=== PATIENT | female | born 1980 | race Caucasian/White ===

== ENCOUNTER 2023-07-31 12:16 | Outpatient (AMB) | payer OTHER, SELFPAY ==
--- NOTE | 2023-07-31 12:22 | MHC.PC.OV ---
Vital Signs 07/31/23 12:30 07/31/23 12:36 Height 5 ft 4.96 in Weight 246 lb BMI 41.0 BP 126/94 H 124/90 H Blood Pressure Location Rt brachial Rt brachial Position Sitting Sitting Respiration 14 Pulse 91 Pulse Source Pulse Oximeter Temp 98 F Temp Source Oral Pulse Oximetry (%) 95 Oxygen Delivery Method Room Air Intake Visit Reasons: NPV Intake Note: New patient visit Allergies amoxicillin Allergy (Severe, Verified 07/31/23 12:25) throat swelling strawberry Allergy (Unknown, Verified 07/31/23 12:25) Hives Medication List - Last Reconciled 07/31/23 by Suzanna Urbano PA-C epinephrine IM escitalopram oxalate 20 mg PO DAILY fexofenadine (Allergy Relief (fexofenadine)) 180 mg PO DAILY gabapentin 600 mg PO BID methylphenidate HCl ER (Concerta) 36 mg PO QAM 60 days omeprazole 20 mg PO DAILY rizatriptan mg PO semaglutide (weight loss) (Wegovy) 0.25 mg (0.5 mL) subcut QWEEK Tobacco use date assessed: 07/31/23 Dental Screening Dental Screen Date: 07/31/23 Did you have a dental visit in the last 12 months?: No Did you have a dental problem in the last 6 months where you did not have access to dental care?: No Was dental information given to patient?: Patient has dentist HPI NPV HPI Details Pt is a 42 y/o female who [facility]. She is transferring from [facility]. She has a significant past medical history of anxiety, depression, high cholesterol, obesity, and gastric sleeve surgery. She would really like to get wegovy be covered by her insurance. She states that for years she has tried every diet from weight watchers, counting calories to low carb/no carb. She currently is on a very low carb diet x 6 months and states that she has a hard time losing weight. She has seen a court worker in the past. She states that she knows what she is supposed to do and thinks that she would benefit from wegovy. She has tried a gastric sleeve which resulted in 100 lb weight loss. She has gained back 30 lbs. She has a family hx of dm and is worried about developing this. She states that she is thirsty all the time. No vision changes or polyuria. She does have borderline elevated bp today. She does have a hx of dyslipidemia and has been following the low carb diet to try to lower her cholesterol and limiting her fatty food intake. Psych: She is on lexapro 20 mg and states that it is effective. She takes concerta 36 mg daily for adhd. Denies any SI/HI. Her PHQ-9 is positive but she states that she is tired all the time because she works 2 full-time jobs and has children. She denies any real depression. States that this feels very well managed with the Lexapro. Mammogram: Up-to-date [facility] Medical History (Updated 07/31/23 @ 14:37 by Suzanna Urbano PA-C) Major depression in partial remission Dyslipidemia Morbid obesity with BMI of 40.0-44.9, adult Depression Anxiety Headache IBS (irritable bowel syndrome) Surgical History (Updated 07/31/23 @ 13:06 by Suzanna Urbano PA-C) S/P gastric sleeve procedure Family History (Updated 07/31/23 @ 12:36 by Telma Pace CMA) Mother Hypercholesteremia Diabetes Maternal Grandmother Asthma Hypercholesteremia Social History (Updated 07/31/23 @ 12:28 by Telma Pace CMA) Housing: House Patient Tobacco Use Status: Former Tobacco user Years Smoked: 20 e-Cigarette/Vaping Use: Never Used Second Hand Smoke Exposure: No service: No Current occupational status: employed Current occupation: it help desk associate at [employer] Current occupational exposures/hazards: No Cognitive needs: No Hearing needs: No Vision needs: No Questionnaire PHQ-9 Over the last 2 weeks, how often have you been bothered by any of the following problems? 1. Little interest or pleasure in doing things: more than half the days 2. Feeling down, depressed, or hopeless: not at all 3. Trouble falling or staying asleep, or sleeping too much: nearly every day 4. Feeling tired or having little energy: more than half the days 5. Poor appetite or overeating: more than half the days 6. Feeling bad about yourself - or that you are a failure or have let yourself or your family down: not at all 7. Trouble concentrating on things, such as reading the newspaper or watching television: nearly every day 8. Moving or speaking so slowly that other people could have noticed. Or the opposite - being so fidgety or restless that you have been moving around a lot more than usual: more than half the days 9. Thoughts that you would be better off or of hurting yourself in some way: not at all Total score: 14 Depression Screening Interpretation: Positive Depression Screening Follow-up: Existing condition and In treatment Depression Screening Done: Yes 62509 - PHQ-9 Billing: Yes Source: Developed by Drs. Deni Lemus, Chantal Sarabia, Shaji Talbot and colleagues, with an educational lisa from [employer]. Thrive Questionnaire Date Thrive assessed: 07/31/23 I am a: Patient What is your living situation today?: I have a steady place to live Within the past 12 months, did the food you bought not last and you didn't have the money to get more?: Never true Within the past 12 months, did you worry whether your food would run out before you got money to buy more?: Never true Do you have trouble paying for medicines?: No Do you have trouble getting transportation to medical appointments?: No Do you have trouble paying your heating and electricity bill?: No Do you have trouble taking care of your child, family member or friend?: No Do you have trouble with day-to-day activities such as bathing, preparing meals, shopping, managing finances, etc.?: No Are you currently unemployed and looking for a job?: No Are you interested in more education?: No Please select the resources that you would like help with: None Currently or been in a relationship where the following occur: no concerns reported THRIVE Score: 0 AUDIT C Alcohol Use Questionnaire (AUDIT-C) 1. How often do you have a drink containing alcohol?: Monthly or less 2. How many drinks containing alcohol do you have on a typical day when you are drinking?: 3 or 4 3. How often do you have six or more drinks on one occasion?: Never Total Score: 2 CINDY-7 AMB Questionnaire CINDY-7 Date CINDY - 7 assessed: 07/31/23 Feeling nervous, anxious, or on edge: 1 = Several days Not being able to stop or control worryin = Not at all Worrying too much about different things: 1 = Several days Trouble relaxin = Several days Being so restless that it is hard to sit still: 1 = Several days Becoming easily annoyed or irritable: 0 = Not at all Feeling afraid as if something awful might happen: 0 = Not at all Total CINDY-7 score (0-4 normal; 5-9 mild; 10-14 moderate; 15-21 severe): 4 Source: Developed by Drs. Deni Lemus, Chantal Sarabia, Shaji Talbot and colleagues, with an educational lisa from [employer]. CINDY-7 Assessment Billing CINDY-7 Assessment Tool: CINDY-7 Assessment 86457 ACT Questionnaire In the past 4 weeks, how much of the time did your asthma keep you from getting as much done at work, school or at home?: None of the time During the past 4 weeks, how often have you had shortness of breath?: Not at all During the past 4 weeks, how often did your asthma symptoms wake you up at night or earlier than usual in the morning?: Not at all During the past 4 weeks, how often have you had to use your rescue inhaler or nebulizer medication?: Not at all How would you rate your asthma control during the past 4 weeks?: Completely controlled ACT Interpretation: Negative Score: 25 Physical exam (Primary Care) Vital Signs: Last Vital Signs Temp 98 F 07/31/23 12:30 Pulse 91 07/31/23 12:30 Resp 14 07/31/23 12:30 BP 124/90 H 07/31/23 12:36 Pulse Ox 95 07/31/23 12:30 Oxygen Delivery Method Room Air 07/31/23 12:30 BMI result Body Mass Index 41.0 BMI Assessment/Plan discussion: High (wegovy) BMI High, discussed plan: lifestyle, weight reduction, dietary, physical activity and alcohol moderation Tobacco/Smoking Status: Tobacco use Status Tobacco use date assessed 07/31/23 07/31/23 12:37 Patient Tobacco Use Status Former Tobacco user 07/31/23 12:37 e-Cigarette/Vaping Use Never Used 07/31/23 12:37 PHQ-9: PHQ-9 Score PHQ-9: Total score 14 07/31/23 12:59 Depression Screening Interpretation: Positive Depression Screening Follow-up: Existing condition and In treatment Thrive Assessment: Date of Thrive Assessment Date Thrive assessed 07/31/23 07/31/23 12:37 Currently or been in a relationship where the following occur: no concerns reported Const Orientation/consciousness: patient oriented x3 HENMT Ears: hearing grossly normal bilaterally Neck Thyroid: Thyroid normal Lymphatic: no lymphadenopathy noted Resp Auscultation: clear to auscultation bilaterally Cardio Rate: regular rate Rhythm: regular rhythm Heart sounds: S1 normal heart sound present and S2 normal heart sound present GI Inspection: Yes normal to inspection Palpation (GI): Soft to palpation and Other GI palpation findings present (nontender, no cva tenderness) Auscultation: normoactive bowel sounds Rectal Exam - Female: deferred Skin General skin exam: no rashes or lesions noted Neuro General: patient oriented x3, gait normal and no focal motor deficits Assessment and Plan Assessment & Plan (1) ADD (attention deficit disorder): Code(s): F98.8 - Other specified behavioral and emotional disorders with onset usually occurring in childhood and adolescence Qualifiers: Attention deficit-hyperactivity disorder type: combined inattentive-hyperactive Hyperactivity presence: present Qualified Code(s): F90.2 - Attention-deficit hyperactivity disorder, combined type Plan: Currently well-controlled with Concerta. (2) Morbid obesity with BMI of 40.0-44.9, adult: Code(s): E66.01 - Morbid (severe) obesity due to excess calories; Z68.41 - Body mass index [BMI] 40.0-44.9, adult Plan: We will try wegovy. We discussed risks and benefits and adverse effects including nausea, vomiting, increased risk of pancreatitis and thyroid malignancies. I have advised her to follow up in 1 month to be reassessed. I have encouraged her to pair this with a low carb diet, increase her exercise and avoid eating after 19:00. Patient understands and agrees with this plan. (3) Dyslipidemia: Code(s): E78.5 - Hyperlipidemia, unspecified Plan: We will recheck lipids in 6 months. (4) Polydipsia: Code(s): R63.1 - Polydipsia Plan: Labs ordered today. We will rule out diabetes. (5) Major depression in partial remission: Code(s): F32.4 - Major depressive disorder, single episode, in partial remission Qualifiers: Major depression recurrence: recurrent Qualified Code(s): F33.41 - Major depressive disorder, recurrent, in partial remission Plan: Well-controlled with Lexapro. (6) Generalized anxiety disorder: Code(s): F41.1 - Generalized anxiety disorder Plan: As above. (7) S/P gastric sleeve procedure: Code(s): Z90.3 - Acquired absence of stomach [part of] Plan: Takes iron supplements. Not on B12 supplements. We will check labs. (8) Elevated blood pressure reading without diagnosis of hypertension: Code(s): R03.0 - Elevated blood-pressure reading, without diagnosis of hypertension Plan: She works at a doctor's office. Advised to monitor her blood pressure over the next couple weeks until let me know. One-month follow up. Sooner if needed. Patient understands and agrees with the plan. Orders: Orders Comprehensive Met. Panel Today E66.01 - Morbid (severe) obesity due to excess calories, E78.5 - Hyperlipidemia, unspecified, F32.4 - Major depressive disorder, single episode, in partial remission, F41.1 - Generalized anxiety disorder, F90.2 - Attention-deficit hyperactivity disorder, combined type, R63.1 - Polydipsia, Z68.41 - Body mass index [BMI] 40.0-44.9, adult Vitamin B12 and Folate Today E66.01 - Morbid (severe) obesity due to excess calories, E78.5 - Hyperlipidemia, unspecified, F32.4 - Major depressive disorder, single episode, in partial remission, F41.1 - Generalized anxiety disorder, F90.2 - Attention-deficit hyperactivity disorder, combined type, R63.1 - Polydipsia, Z68.41 - Body mass index [BMI] 40.0-44.9, adult Hemoglobin A1c Today E66.01 - Morbid (severe) obesity due to excess calories, E78.5 - Hyperlipidemia, unspecified, F32.4 - Major depressive disorder, single episode, in partial remission, F41.1 - Generalized anxiety disorder, F90.2 - Attention-deficit hyperactivity disorder, combined type, R63.1 - Polydipsia, Z68.41 - Body mass index [BMI] 40.0-44.9, adult Thyroid Peroxidase Antibodies Today E66.01 - Morbid (severe) obesity due to excess calories, E78.5 - Hyperlipidemia, unspecified, F32.4 - Major depressive disorder, single episode, in partial remission, F41.1 - Generalized anxiety disorder, F90.2 - Attention-deficit hyperactivity disorder, combined type, R63.1 - Polydipsia, Z68.41 - Body mass index [BMI] 40.0-44.9, adult Thyroglobulin Antibodies Today E66.01 - Morbid (severe) obesity due to excess calories, E78.5 - Hyperlipidemia, unspecified, F32.4 - Major depressive disorder, single episode, in partial remission, F41.1 - Generalized anxiety disorder, F90.2 - Attention-deficit hyperactivity disorder, combined type, R63.1 - Polydipsia, Z68.41 - Body mass index [BMI] 40.0-44.9, adult TSH reflex Free T4 Today E66.01 - Morbid (severe) obesity due to excess calories, E78.5 - Hyperlipidemia, unspecified, F32.4 - Major depressive disorder, single episode, in partial remission, F41.1 - Generalized anxiety disorder, F90.2 - Attention-deficit hyperactivity disorder, combined type, R63.1 - Polydipsia, Z68.41 - Body mass index [BMI] 40.0-44.9, adult Medications: Refilled semaglutide (weight loss) (BartMindframedaniela) administer weeks 1 through 4 of therapy 0.25 mg (0.5 mL) subcut QWEEK 2 mL 1RF Coding Level of Care Code Est Pt Level 4 (89944) Complex EM visit Add On G2211 Diagnoses Attention deficit hyperactivity disorder (ADHD), combined type F90.2 Attention deficit-hyperactivity disorder type: combined inattentive-hyperactive Hyperactivity presence: present Morbid obesity with BMI of 40.0-44.9, adult E66.01; Z68.41 Dyslipidemia E78.5 Polydipsia R63.1 Recurrent major depressive disorder, in partial remission F33.41 Major depression recurrence: recurrent Generalized anxiety disorder F41.1 S/P gastric sleeve procedure Z90.3 Elevated blood pressure reading without diagnosis of hypertension R03.0 Additional Codes CINDY-7 Assessment Billing - CINDY-7 Assessment Tool: CINDY-7 Assessment [id number] ([id number])
[2023-07-31 12:30] VITALS: BP 126/94; PULSE 91; RESP 14; TEMP 36.6; O2SAT 95; BMI 41.0
[2023-07-31 12:36] VITALS: BP 124/90
== END 2023-07-31 13:17 | disposition home or self-care (01) ==
PROVIDERS: PCP Internal Medicine; Visit Provider Physician Assistant
DX: E78.5 Hyperlipidemia, unspecified (principal); E66.01 Morbid (severe) obesity due to excess calories; Z68.41 Body mass index [BMI] 40.0-44.9, adult; F33.41 Major depressive disorder, recurrent, in partial remission; F90.2 Attention-deficit hyperactivity disorder, combined type; R63.1 Polydipsia; F41.1 Generalized anxiety disorder; Z90.3 Acquired absence of stomach [part of]; R03.0 Elevated blood-pressure reading, without diagnosis of hypertension
CPT/HCPCS: 99214; G2211

== ENCOUNTER 2023-07-31 13:18 | Outpatient (REF) | payer OTHER, SELFPAY ==
[2023-07-31 17:59] LABS: Alanine Aminotransferase 17 U/L (0-31); Albumin Level 4.5 g/dL (3.5-5.0); Alkaline Phosphatase 49 U/L (39-117); Anion Gap 15 (12-20); Aspartate Amino Transferase 14 U/L (5-31); Bilirubin Total 0.3 mg/dL (0.0-1.0); Blood Urea Nitrogen 12 mg/dL (9-16); Calcium 9.1 mg/dL (8.4-10.2); Carbon Dioxide 22 mmol/L (22-29); Chloride 106 mmol/L (96-108); Estimated Glomerular Filt Rate > 60; Glucose Random 86 mg/dL (60-115); Potassium 3.9 mmol/L (3.3-5.1); Sodium 139 mmol/L (135-145); Total Protein 7.2 g/dL (6.5-8.0)
[2023-07-31 18:16] LABS: TSH reflex Free T4 0.73 uIU/mL (0.32-4.0)
[2023-07-31 18:22] LABS: Folate 5.9 ng/mL (> or = 4.0); Vitamin B12 498 pg/mL (200-900)
[2023-08-01 07:07] LABS: Estimated Average Glucose 103 mg/dL; Hemoglobin A1c % 5.2 % (<6.0)
[2023-08-04 17:43] LABS: Thyroglobulin Antibodies <1 IU/mL (< or = 1); Thyroid Peroxidase Antibodies 1 IU/mL (<9)
== END 2023-07-31 13:19 | disposition home or self-care (01) ==
LOC: HO.WFDLDS 13:18
PROVIDERS: Visit Provider Physician Assistant
DX: F41.1 Generalized anxiety disorder (principal); F32.4 Major depressive disorder, single episode, in partial remission; R63.1 Polydipsia; E78.5 Hyperlipidemia, unspecified; E66.01 Morbid (severe) obesity due to excess calories; Z68.41 Body mass index [BMI] 40.0-44.9, adult; F90.2 Attention-deficit hyperactivity disorder, combined type
CPT/HCPCS: 36415; 80053; 82607; 82746; 83036; 84443; 86376; 86800

== ENCOUNTER 2023-11-26 08:08 | Outpatient (AMB) | payer OTHER, SELFPAY ==
--- NOTE | 2023-11-26 08:17 | MHC.PC.OV ---
Vital Signs 11/26/23 08:19 Height 5 ft 4.96 in Weight 227 lb 6 oz BMI 37.9 BP 116/84 Blood Pressure Location Rt brachial Position Sitting Respiration 16 Pulse 79 Pulse Source Pulse Oximeter Pulse Oximetry (%) 95 Oxygen Delivery Method Room Air Intake Visit Reasons: Meds Intake Note: Medication follow up Allergies amoxicillin Allergy (Severe, Verified 11/26/23 08:17) throat swelling strawberry Allergy (Unknown, Verified 11/26/23 08:17) Hives Medication List - Last Reconciled 11/26/23 by Suzanna Urbano PA-C blood-glucose sensor (FreeStyle Mason 3 Sensor device) Apply every 14 days As directed to monitor blood glucose epinephrine IM escitalopram oxalate 20 mg PO DAILY ferrous sulfate 325 mg PO DAILY fexofenadine (Allergy Relief (fexofenadine)) 180 mg PO DAILY gabapentin 600 mg PO BID methylphenidate HCl ER (Concerta) 36 mg PO QAM 60 days nystatin 1 appl topical TID 10 days omeprazole 20 mg PO DAILY polyethylene glycol 3350 (Miralax) 17 grams PO BID rizatriptan mg PO semaglutide (weight loss) (Wegovy) 2.4 mg (0.75 mL) subcut QWEEK Tobacco use date assessed: 07/31/23 Dental Screening Dental Screen Date: 07/31/23 HPI Meds HPI Details Patient is a 43-year-old female with a significant past medical history of obesity, s/p gastric bypass, prediabetes, dyslipidemia, chronic back pain, ADD, anxiety and depression presenting today for a follow up. Psych: States that she is well-controlled on Concerta 36 mg. Has been on this for quite some time. Her anxiety and depression is well-controlled with Lexapro. General: Has lost 20 lb since starting Wegovy. States that she is doing well with this and has no adverse effects. She also has the freestyle Mason 3 which she has been paid for [id number] to help her manage her diet. Musculoskeleltal: She reports low back pain that has been present for many years. She has had injections in the past with good relief of symptoms but over the last 10 months she has had an exacerbation of this back pain. It is across her low back and feels more central. It aches. She did have an x-ray at [facility] which showed degeneration of the discs and joint space. At times the pain radiates down her legs. No numbness or weakness of her extremities but the pain is sharp and shooting. She says that the pain of her back is every day. She has been doing physical therapy that she has learned over the years from going to PT. She states that her core is strong and she is careful with how she lifts. She does have good days and bad days of this back pain. Gabapentin makes her feel altered. She says that she takes it but it does make her feel a little loopy. She does not like having to take this especially while working. She does use OTC analgesics primarily and is asking today for a refill of oxycodone to use as needed for back pain exacerbation. This past month been worse than it has been. She states that she would like something to get her through until she can see Dr. Clayton. We have trialed prednisone tapers a couple times with some improvement of the pain but did not fully relieve it. No bowel or bladder dysfunction. No specific trauma. Endo: A1c today is 5.2. CV: Last blood pressure in the office was a little elevated and today is 116/84. Cholesterol is diet controlled. She is excited to see her new numbers with her lifestyle modifications. Mammo: Up-to-date at [facility] Medical History (Updated 11/26/23 @ 08:33 by Suzanna Urbano PA-C) Major depression in partial remission Dyslipidemia Morbid obesity with BMI of 40.0-44.9, adult Depression Anxiety Headache IBS (irritable bowel syndrome) Surgical History (Updated 07/31/23 @ 13:06 by Suzanna Urbano PA-C) S/P gastric sleeve procedure Family History (Updated 07/31/23 @ 12:36 by Telma Pace CMA) Mother Hypercholesteremia Diabetes Maternal Grandmother Asthma Hypercholesteremia Social History (Updated 07/31/23 @ 12:28 by Telma Pace CMA) Housing: House Patient Tobacco Use Status: Former Tobacco user Years Smoked: 20 e-Cigarette/Vaping Use: Never Used Second Hand Smoke Exposure: No service: No Current occupational status: employed Current occupation: desktop support consultant at [employer] Current occupational exposures/hazards: No Cognitive needs: No Hearing needs: No Vision needs: No Questionnaire PHQ-9 Over the last 2 weeks, how often have you been bothered by any of the following problems? 1. Little interest or pleasure in doing things: not at all 2. Feeling down, depressed, or hopeless: not at all 3. Trouble falling or staying asleep, or sleeping too much: several days 4. Feeling tired or having little energy: not at all 5. Poor appetite or overeating: not at all 6. Feeling bad about yourself - or that you are a failure or have let yourself or your family down: not at all 7. Trouble concentrating on things, such as reading the newspaper or watching television: not at all 8. Moving or speaking so slowly that other people could have noticed. Or the opposite - being so fidgety or restless that you have been moving around a lot more than usual: not at all 9. Thoughts that you would be better off or of hurting yourself in some way: not at all Total score: 1 Depression Screening Interpretation: Negative Depression Screening Done: Yes 63367 - PHQ-9 Billing: Yes Source: Developed by Drs. Deni Lemus, Chantal Sarabia, Shaji Talbot and colleagues, with an educational lisa from [employer]. Thrive Questionnaire Date Thrive assessed: 11/24/23 I am a: Patient What is your living situation today?: I have a steady place to live Within the past 12 months, did the food you bought not last and you didn't have the money to get more?: Never true Within the past 12 months, did you worry whether your food would run out before you got money to buy more?: Never true Do you have trouble paying for medicines?: No Do you have trouble getting transportation to medical appointments?: No Do you have trouble paying your heating and electricity bill?: No Do you have trouble taking care of your child, family member or friend?: No Do you have trouble with day-to-day activities such as bathing, preparing meals, shopping, managing finances, etc.?: No Are you currently unemployed and looking for a job?: No Are you interested in more education?: No Please select the resources that you would like help with: None Currently or been in a relationship where the following occur: No concerns reported THRIVE Score: 0 AUDIT C Alcohol Use Questionnaire (AUDIT-C) 1. How often do you have a drink containing alcohol?: 2-4 times a month 2. How many drinks containing alcohol do you have on a typical day when you are drinking?: 3 or 4 3. How often do you have six or more drinks on one occasion?: Never Total Score: 3 Score Reviewed/Action Taken: Yes CINDY-7 AMB Questionnaire CINDY-7 Date CINDY - 7 assessed: 07/31/23 Feeling nervous, anxious, or on edge: 0 = Not at all Not being able to stop or control worryin = Not at all Worrying too much about different things: 0 = Not at all Trouble relaxin = Several days Being so restless that it is hard to sit still: 0 = Not at all Becoming easily annoyed or irritable: 1 = Several days Feeling afraid as if something awful might happen: 0 = Not at all Total CINDY-7 score (0-4 normal; 5-9 mild; 10-14 moderate; 15-21 severe): 2 Source: Developed by Drs. Deni Lemus, Chantal Sarabia, Shaji Talbot and colleagues, with an educational lisa from [employer]. CINDY-7 Assessment Billing CINDY-7 Assessment Tool: CINDY-7 Assessment 07823 Physical exam (Primary Care) Tobacco/Smoking Status: Tobacco use Status Tobacco use date assessed 07/31/23 07/31/23 12:37 Patient Tobacco Use Status Former Tobacco user 07/31/23 12:37 e-Cigarette/Vaping Use Never Used 07/31/23 12:37 Depression Screening Interpretation: Negative Thrive Assessment: Date of Thrive Assessment Date Thrive assessed 11/24/23 11/24/23 08:53 Currently or been in a relationship where the following occur: No concerns reported Const Orientation/consciousness: patient oriented x3 HENMT Ears: hearing grossly normal bilaterally Neck Thyroid: Thyroid normal Lymphatic: no lymphadenopathy noted Resp Auscultation: clear to auscultation bilaterally Cardio Rate: regular rate Rhythm: regular rhythm Heart sounds: S1 normal heart sound present and S2 normal heart sound present GI Inspection: Yes normal to inspection Palpation (GI): Soft to palpation and Other GI palpation findings present (nontender, no cva tenderness) Auscultation: normoactive bowel sounds Rectal Exam - Female: deferred Skin General skin exam: no rashes or lesions noted Neuro General: patient oriented x3, gait normal and no focal motor deficits Results AMB Hemoglobin A1c AMB Hemoglobin A1c 5.2 % Last Edit by Telma Pace CMA on 11/26/23 08:35 Coding Level of Care Code Est Pt Level 4 (77976) Complex EM visit Add On G2211 Diagnoses Attention deficit hyperactivity disorder (ADHD), combined type F90.2 Hyperactivity presence: present Attention deficit-hyperactivity disorder type: combined inattentive-hyperactive Recurrent major depressive disorder, in partial remission F33.41 Major depression recurrence: recurrent Dyslipidemia E78.5 Morbid obesity with BMI of 40.0-44.9, adult E66.01; Z68.41 Acute on chronic back pain M54.9; G89.29 Prediabetes R73.03 Bilateral low back pain with sciatica M54.40 Additional Codes CINDY-7 Assessment Billing - CINDY-7 Assessment Tool: CINDY-7 Assessment 91131 ([id number]) Assessment & Plan Assessment & Plan (1) ADD (attention deficit disorder): Code(s): F98.8 - Other specified behavioral and emotional disorders with onset usually occurring in childhood and adolescence Category: Medical Qualifiers: Hyperactivity presence: present Attention deficit-hyperactivity disorder type: combined inattentive-hyperactive Qualified Code(s): F90.2 - Attention-deficit hyperactivity disorder, combined type Plan: Well-controlled. Continue Concerta. On a CSC for this. (2) Major depression in partial remission: Code(s): F32.4 - Major depressive disorder, single episode, in partial remission Category: Medical Qualifiers: Major depression recurrence: recurrent Qualified Code(s): F33.41 - Major depressive disorder, recurrent, in partial remission Plan: Well-controlled. Continue current regimen (3) Dyslipidemia: Code(s): E78.5 - Hyperlipidemia, unspecified Category: Medical Plan: We will monitor. Recently lost 20 lb with diet changes. (4) Morbid obesity with BMI of 40.0-44.9, adult: Code(s): E66.01 - Morbid (severe) obesity due to excess calories; Z68.41 - Body mass index [BMI] 40.0-44.9, adult Category: Medical Plan: Continue Wegovy. (5) Acute on chronic back pain: Code(s): M54.9 - Dorsalgia, unspecified; G89.29 - Other chronic pain Category: Medical Plan: MRI ordered given the trials of prednisone, PT, rest and conservative management. I have referred her to physiatry. We will follow up pending test results. We will prescribe oxycodone for severe exacerbated back pain. We did discuss risks and benefits and adverse effects of this medication including addiction, dependence, sedation. She will not drink alcohol or operate a vehicle while taking this medication. (6) Prediabetes: Code(s): R73.03 - Prediabetes Category: Medical Plan: A1c today WNL. Continue current regimen. (7) Bilateral low back pain with sciatica: Code(s): M54.40 - Lumbago with sciatica, unspecified side Category: Medical Plan: As listed above Plan Follow up in 3 months. Sooner if needed. Labs ordered prior to appointment. Patient understands and agrees with the plan. Orders: Orders AMB Hemoglobin A1c Today R73.03 - Prediabetes MR lumbar spine wo con Today G89.29 - Other chronic pain, M54.40 - Lumbago with sciatica, unspecified side, M54.9 - Dorsalgia, unspecified Comprehensive [place]. Panel Fast Today E66.01 - Morbid (severe) obesity due to excess calories, E78.5 - Hyperlipidemia, unspecified, F33.41 - Major depressive disorder, recurrent, in partial remission, G89.29 - Other chronic pain, M54.40 - Lumbago with sciatica, unspecified side, M54.9 - Dorsalgia, unspecified, R73.03 - Prediabetes, Z68.41 - Body mass index [BMI] 40.0-44.9, adult Complete Blood Count Auto Diff Today E66.01 - Morbid (severe) obesity due to excess calories, E78.5 - Hyperlipidemia, unspecified, F33.41 - Major depressive disorder, recurrent, in partial remission, G89.29 - Other chronic pain, M54.40 - Lumbago with sciatica, unspecified side, M54.9 - Dorsalgia, unspecified, R73.03 - Prediabetes, Z68.41 - Body mass index [BMI] 40.0-44.9, adult Lipid Panel Today E66.01 - Morbid (severe) obesity due to excess calories, E78.5 - Hyperlipidemia, unspecified, F33.41 - Major depressive disorder, recurrent, in partial remission, G89.29 - Other chronic pain, M54.40 - Lumbago with sciatica, unspecified side, M54.9 - Dorsalgia, unspecified, R73.03 - Prediabetes, Z68.41 - Body mass index [BMI] 40.0-44.9, adult Referrals Physiatry Referral G89.29 - Other chronic pain, M54.40 - Lumbago with sciatica, unspecified side, M54.9 - Dorsalgia, unspecified Medications: New oxycodone Partial Fill upon patient request. 5 mg PO Q12H 28 days PRN 56 tabs 0RF pain Refilled methylphenidate HCl ER (Concerta) Partial Fill upon patient request. 36 mg PO QAM 60 days 60 tabs 0RF F98.8 - Other specified behavioral and emotional disorders with onset usually occurring in childhood and adolescence semaglutide (weight loss) (Wegovy) 2.4 mg (0.75 mL) subcut QWEEK 3 mL 11RF
[2023-11-26 08:19] VITALS: BP 116/84; PULSE 79; RESP 16; O2SAT 95; BMI 37.9
== END 2023-11-26 09:00 | disposition home or self-care (01) ==
PROVIDERS: PCP Internal Medicine; Visit Provider Physician Assistant
DX: E78.5 Hyperlipidemia, unspecified (principal); F33.41 Major depressive disorder, recurrent, in partial remission; E66.813 Obesity, class 3; Z68.41 Body mass index [BMI] 40.0-44.9, adult; F90.2 Attention-deficit hyperactivity disorder, combined type; M54.9 Dorsalgia, unspecified; G89.29 Other chronic pain; R73.03 Prediabetes; M54.40 Lumbago with sciatica, unspecified side

== ENCOUNTER → 2023-11-26 08:08 | Outpatient (BNVA) | payer OTHER, SELFPAY | PROVIDERS: PCP Internal Medicine; Visit Provider Physician Assistant | DX: F90.2 Attention-deficit hyperactivity disorder, combined type (principal); F33.41 Major depressive disorder, recurrent, in partial remission; E78.5 Hyperlipidemia, unspecified; E66.01 Morbid (severe) obesity due to excess calories; Z68.41 Body mass index [BMI] 40.0-44.9, adult; G89.29 Other chronic pain; M54.9 Dorsalgia, unspecified; R73.03 Prediabetes; M54.50 Low back pain, unspecified | CPT/HCPCS: 83036; 96127 ==

== ENCOUNTER 2023-11-26 09:05 | Outpatient (REF) | payer OTHER, SELFPAY ==
[2023-11-26 11:01] LABS: MANUAL DIFF FLAG NO
[2023-11-26 11:16] LABS: Basophils Absolute Auto 0.1 X10*3/uL (0.0-0.2); Basophils Percent Auto 0.7 % (0-2); Eosinophils Absolute Auto 0.1 X10*3/uL (0.0-0.4); Eosinophils Percent Auto 1.3 % (0-4); Hemoglobin 14.4 g/dl (12.0-16.0); Imm Gran Abs Auto 0.01 X10*3/uL (0.00-0.03); Imm Gran Pct Auto 0.1 % (0.0-0.4); Lymphocytes Percent Auto 29.1 % (20-40); Mean Corpuscular HGB Conc 33.5 g/dl (31.0-35.0); Mean Corpuscular Hemoglobin 29.2 pg (27.0-33.0); Mean Corpuscular Volume 87.2 fL (80.0-98.0); Mean Platelet Volume 10.6 fL (9.4-12.3); Monocytes Absolute Auto 0.5 X10*3/uL (0.1-1.2); Monocytes Percent Auto 7.7 % (2-11); Neutrophils Absolute Auto 4.1 x10*3/uL (2.0-8.3); Neutrophils Percent Auto 61.1 % (45-73); Platelet Count 479 X10*3/uL (160-400); Red Blood Count 4.93 X10*6/uL (4.20-5.50); White Blood Count 6.8 X10*3/uL (4.8-10.8)
[2023-11-26 11:22] LABS: Alanine Aminotransferase 14 U/L (0-31); Albumin Level 4.5 g/dL (3.5-5.0); Alkaline Phosphatase 43 U/L (39-117); Anion Gap 11 (12-20); Aspartate Amino Transferase 14 U/L (5-31); Bilirubin Total 0.7 mg/dL (0.0-1.0); Blood Urea Nitrogen 10 mg/dL (9-16); Carbon Dioxide 25 mmol/L (22-29); Chloride 109 mmol/L (96-108); Cholesterol 192 mg/dL (<200); Estimated Glomerular Filt Rate > 60; Glucose Fasting 93 mg/dL (60-99); HDL Cholesterol 38 mg/dL (>40); LDL Cholesterol Calculated 135 mg/dL (<100); Sodium 141 mmol/L (135-145); Total Protein 7.1 g/dL (6.5-8.0); Triglycerides 96 mg/dL (<150)
== END 2023-11-26 09:06 | disposition home or self-care (01) ==
LOC: HO.WFDLDS 09:05
PROVIDERS: Visit Provider Physician Assistant
DX: M54.40 Lumbago with sciatica, unspecified side (principal); R73.03 Prediabetes; M54.9 Dorsalgia, unspecified; G89.29 Other chronic pain; F33.41 Major depressive disorder, recurrent, in partial remission; E66.01 Morbid (severe) obesity due to excess calories; Z68.41 Body mass index [BMI] 40.0-44.9, adult; E78.5 Hyperlipidemia, unspecified
CPT/HCPCS: 36415; 80053; 80061; 85025

== ENCOUNTER 2023-12-10 16:45 | Outpatient (REF) | payer OTHER, SELFPAY ==
--- NOTE | ~2023-12-10 | XR_ITS ---
EXAMINATION: XR CHEST CLINICAL INFORMATION: Cough COMPARISON: None available. TECHNIQUE: 2 views of the chest were obtained. FINDINGS: No significant abnormality is noted involving the heart, lungs, mediastinum, bony thorax or soft tissues. XR/XR chest 2V IMPRESSION: Unremarkable examination. Electronically signed by: Erik Bliss MD 12/11/2023 10:48 AM EDT
== END 2023-12-10 16:46 | disposition home or self-care (01) ==
LOC: HO.XRAY 16:45
PROVIDERS: PCP Physician Assistant; Visit Provider Physician Assistant
DX: R05.9 Cough, unspecified (principal)
CPT/HCPCS: 71046

== ENCOUNTER 2023-12-31 10:49 | Outpatient (AMB) | payer OTHER, SELFPAY ==
--- NOTE | 2023-12-31 10:46 | A.OFFPC_ITS ---
Intake Visit Reasons: paperwork Allergies amoxicillin Allergy (Severe, Verified 11/26/23 08:17) throat swelling strawberry Allergy (Unknown, Verified 11/26/23 08:17) Hives Tobacco use date assessed: 07/31/23 Dental Screening Dental Screen Date: 07/31/23 HPI paperwork HPI Details Patient is a 43-year-old female who presents today requesting a letter. She experienced Left leg pain started in May after she tripped on bottom and strained her leg. She then tried to give it a few days of OTC medicines then the lower leg pain continued. She got an xray (06/09/23) and followed by u/s on (06/05/23) to rule out clot. She called today because she needs a note stating that this was related to an at home injury. She states eventually got a lot better after 1 month. Around that time she was unable to do much exercise or excessive walking. 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 She was using rest, tylenol, and motrin. Psych: States that her anxiety is currently very well-controlled with the Lexapro 20 mg. [employer] is working for her ADHD. General: She is losing weight with Wegovy. Tolerating well. No nausea or vomiting. [facility] Medical History (Updated 12/10/23 @ 13:04 by Suzanna Urbano PA-C) Major depression in partial remission Dyslipidemia Morbid obesity with BMI of 40.0-44.9, adult Depression Anxiety Headache IBS (irritable bowel syndrome) Surgical History (Updated 07/31/23 @ 13:06 by Suzanna Urbano PA-C) S/P gastric sleeve procedure Family History (Updated 07/31/23 @ 12:36 by Telma Pace CMA) Mother Hypercholesteremia Diabetes Maternal Grandmother Asthma Hypercholesteremia Social History (Updated 07/31/23 @ 12:28 by Telma Pace CMA) Housing: House Patient Tobacco Use Status: Former Tobacco user Years Smoked: 20 e-Cigarette/Vaping Use: Never Used Second Hand Smoke Exposure: No service: No Current occupational status: employed Current occupation: help desk assistant at [employer] Current occupational exposures/hazards: No Cognitive needs: No Hearing needs: No Vision needs: No Questionnaire Thrive Questionnaire Date Thrive assessed: 11/24/23 CINDY-7 AMB Questionnaire CINDY-7 Date CINDY - 7 assessed: 07/31/23 Source: Developed by Drs. Deni Lemus, Chantal Sarabia, Shaji Talbot and colleagues, with an educational lisa from [employer]. Physical exam (Primary Care) Tobacco/Smoking Status: Tobacco use Status Tobacco use date assessed 07/31/23 12/31/23 10:48 Patient Tobacco Use Status Former Tobacco user 12/31/23 10:48 e-Cigarette/Vaping Use Never Used 12/31/23 10:48 Thrive Assessment: Date of Thrive Assessment Date Thrive assessed 11/24/23 12/31/23 10:48 Telehealth Telehealth Telehealth Platform: Telephone Location of provider rendering services: practice address Location of patient: address on file Patient Identification confirmed using: Name, : Yes Telehealth method: voice only Patient verbally consented to treatment: Yes Patient verbally consented to billing insurance company: Yes Patient informed of any privacy concerns related to visit: Yes Minutes spent on Phone/Video with Pt.: 12 Coding Level of Care Code Tele Est Pt Level 2 (51463) Diagnoses Morbid obesity with BMI of 40.0-44.9, adult E66.01; Z68.41 Recurrent major depressive disorder, in partial remission F33.41 Major depression recurrence: recurrent Left leg pain M79.605 Assessment & Plan Assessment & Plan (1) Morbid obesity with BMI of 40.0-44.9, adult: Code(s): E66.01 - Morbid (severe) obesity due to excess calories; Z68.41 - Body mass index [BMI] 40.0-44.9, adult Category: Medical Plan: Improving with Wegovy (2) Major depression in partial remission: Code(s): F32.4 - Major depressive disorder, single episode, in partial remission Category: Medical Qualifiers: Major depression recurrence: recurrent Qualified Code(s): F33.41 - Major depressive disorder, recurrent, in partial remission Plan: Continue current regimen (3) Left leg pain: Code(s): M79.605 - Pain in left leg Plan: Letter written and printed for her.
== END 2023-12-31 12:40 | disposition home or self-care (01) ==
LOC: HO.HMCFM 10:49
PROVIDERS: PCP Physician Assistant; Visit Provider Physician Assistant
DX: M79.605 Pain in left leg (principal); E66.01 Morbid (severe) obesity due to excess calories; Z68.41 Body mass index [BMI] 40.0-44.9, adult; F33.41 Major depressive disorder, recurrent, in partial remission

== ENCOUNTER 2024-03-04 08:22 | Outpatient (AMB) | payer OTHER, SELFPAY ==
--- NOTE | 2024-03-04 08:39 | MHC.PC.OV ---
Vital Signs 03/04/24 08:41 Height 5 ft 5 in Weight 217 lb BMI 36.1 BP 112/82 Blood Pressure Location Lt brachial Position Sitting Intake Visit Reasons: meds Allergies amoxicillin Allergy (Severe, Verified 11/26/23 08:17) throat swelling strawberry Allergy (Unknown, Verified 11/26/23 08:17) Hives Medication List - Last Reconciled 03/04/24 by Suzanna Urbano PA-C blood-glucose sensor (FreeStyle Mason 3 Sensor device) Apply every 14 days As directed to monitor blood glucose epinephrine IM escitalopram oxalate 20 mg PO DAILY ferrous sulfate 325 mg PO DAILY fexofenadine (Allergy Relief (fexofenadine)) 180 mg PO DAILY fluticasone propionate 50 mcg/actuation (Flonase Allergy Relief) 2 sprays intranasal DAILY gabapentin 600 mg (2 x 300 mg) PO BID 90 days meloxicam 15 mg PO DAILY methylphenidate HCl ER (Concerta) 36 mg PO QAM 60 days nystatin 1 appl topical TID 10 days omeprazole 20 mg PO DAILY oxycodone 5 mg PO Q12H PRN 28 days polyethylene glycol 3350 (Miralax) 17 grams PO BID rizatriptan mg PO semaglutide (weight loss) (Wegovy) 2.4 mg (0.75 mL) subcut QWEEK Tobacco use date assessed: 07/31/23 Dental Screening Dental Screen Date: 07/31/23 HPI meds HPI Details Patient is a 43-year-old female with a significant past medical history of obesity, s/p gastric bypass, prediabetes, dyslipidemia, chronic back pain, ADD, anxiety and depression presenting today for a follow up. Psych: States that she is well-controlled on Concerta 36 mg. Has been on this for quite some time. Her anxiety and depression is well-controlled with Lexapro. General: Has lost 30 lb since starting Wegovy. States that she is doing well with this and has no adverse effects. She also has the freestyle Mason 3 which she has been paid for dos-gc-qdayer to help her manage her diet. Musculoskeleltal: Ongoing chronic low back pain. She recently had an MRI which was consistent with some degeneration and disc herniation. Following closely with physiatry. Has an appointment next week. Endo: Last A1c was 5.2. CV: blood pressure is 112/82. Cholesterol is diet controlled. She is excited to see her new numbers with her lifestyle modifications. Mammo: Up-to-date at [facility] Medical History (Updated 03/04/24 @ 09:07 by Suzanna Urbano PA-C) Major depression in partial remission Dyslipidemia Morbid obesity with BMI of 40.0-44.9, adult Depression Anxiety Headache IBS (irritable bowel syndrome) Surgical History (Updated 07/31/23 @ 13:06 by Suzanna Urbano PA-C) S/P gastric sleeve procedure Family History (Updated 07/31/23 @ 12:36 by Telma Pace CMA) Mother Hypercholesteremia Diabetes Maternal Grandmother Asthma Hypercholesteremia Social History (Updated 07/31/23 @ 12:28 by Telma Pace CMA) Housing: House Patient Tobacco Use Status: Former Tobacco user Years Smoked: 20 e-Cigarette/Vaping Use: Never Used Second Hand Smoke Exposure: No service: No Current occupational status: employed Current occupation: it desktop support specialist at [employer] Current occupational exposures/hazards: No Cognitive needs: No Hearing needs: No Vision needs: No Questionnaire PHQ-9 Over the last 2 weeks, how often have you been bothered by any of the following problems? 1. Little interest or pleasure in doing things: not at all 2. Feeling down, depressed, or hopeless: not at all 3. Trouble falling or staying asleep, or sleeping too much: not at all 4. Feeling tired or having little energy: not at all 5. Poor appetite or overeating: not at all 6. Feeling bad about yourself - or that you are a failure or have let yourself or your family down: not at all 7. Trouble concentrating on things, such as reading the newspaper or watching television: not at all 8. Moving or speaking so slowly that other people could have noticed. Or the opposite - being so fidgety or restless that you have been moving around a lot more than usual: not at all 9. Thoughts that you would be better off or of hurting yourself in some way: not at all Total score: 0 Source: Developed by Drs. Deni Lemus, Chantal Sarabia, Shaji Talbot and colleagues, with an educational lisa from [employer]. Thrive Questionnaire Date Thrive assessed: 02/26/24 I am a: Patient What is your living situation today?: I have a steady place to live Within the past 12 months, did the food you bought not last and you didn't have the money to get more?: Never true Within the past 12 months, did you worry whether your food would run out before you got money to buy more?: Never true Do you have trouble paying for medicines?: No Do you have trouble getting transportation to medical appointments?: No Do you have trouble paying your heating and electricity bill?: No Do you have trouble taking care of your child, family member or friend?: No Do you have trouble with day-to-day activities such as bathing, preparing meals, shopping, managing finances, etc.?: No Are you currently unemployed and looking for a job?: No Are you interested in more education?: No Please select the resources that you would like help with: None Currently or been in a relationship where the following occur: No concerns reported THRIVE Score: 0 AUDIT C Alcohol Use Questionnaire (AUDIT-C) 1. How often do you have a drink containing alcohol?: Monthly or less 2. How many drinks containing alcohol do you have on a typical day when you are drinking?: 3 or 4 3. How often do you have six or more drinks on one occasion?: Never Total Score: 2 CINDY-7 AMB Questionnaire CINDY-7 Date CINDY - 7 assessed: 07/31/23 Feeling nervous, anxious, or on edge: 0 = Not at all Not being able to stop or control worryin = Not at all Worrying too much about different things: 0 = Not at all Trouble relaxin = Not at all Being so restless that it is hard to sit still: 0 = Not at all Becoming easily annoyed or irritable: 1 = Several days Feeling afraid as if something awful might happen: 0 = Not at all Total CINDY-7 score (0-4 normal; 5-9 mild; 10-14 moderate; 15-21 severe): 1 Source: Developed by Drs. Deni Lemus, Chantal Sarabia, Shaji Talbot and colleagues, with an educational lisa from [employer]. Physical exam (Primary Care) Tobacco/Smoking Status: Tobacco use Status Tobacco use date assessed 07/31/23 12/31/23 10:48 Patient Tobacco Use Status Former Tobacco user 12/31/23 10:48 e-Cigarette/Vaping Use Never Used 12/31/23 10:48 Thrive Assessment: Date of Thrive Assessment Date Thrive assessed 02/26/24 02/26/24 11:41 Currently or been in a relationship where the following occur: No concerns reported Const Orientation/consciousness: patient oriented x3 HENMT Ears: hearing grossly normal bilaterally Neck Thyroid: Thyroid normal Lymphatic: no lymphadenopathy noted Resp Auscultation: clear to auscultation bilaterally Cardio Rate: regular rate Rhythm: regular rhythm Heart sounds: S1 normal heart sound present and S2 normal heart sound present GI Inspection: Yes normal to inspection Palpation (GI): Soft to palpation and Other GI palpation findings present (nontender, no cva tenderness) Auscultation: normoactive bowel sounds Rectal Exam - Female: deferred Skin General skin exam: no rashes or lesions noted Neuro General: patient oriented x3, gait normal and no focal motor deficits Coding Level of Care Code Est Pt Level 4 (80557) Complex EM visit Add On G2211 Diagnoses Attention deficit hyperactivity disorder (ADHD), combined type F90.2 Hyperactivity presence: present Attention deficit-hyperactivity disorder type: combined inattentive-hyperactive Recurrent major depressive disorder, in partial remission F33.41 Major depression recurrence: recurrent Generalized anxiety disorder F41.1 GINETTE (iron deficiency anemia) D50.9 Vitamin B12 deficiency E53.8 Assessment & Plan Assessment & Plan (1) ADD (attention deficit disorder): Code(s): F98.8 - Other specified behavioral and emotional disorders with onset usually occurring in childhood and adolescence Category: Medical Qualifiers: Hyperactivity presence: present Attention deficit-hyperactivity disorder type: combined inattentive-hyperactive Qualified Code(s): F90.2 - Attention-deficit hyperactivity disorder, combined type Plan: Medication refilled today. (2) Major depression in partial remission: Code(s): F32.4 - Major depressive disorder, single episode, in partial remission Category: Medical Qualifiers: Major depression recurrence: recurrent Qualified Code(s): F33.41 - Major depressive disorder, recurrent, in partial remission Plan: Very well-controlled with Lexapro 20 mg. Continue current regimen (3) Generalized anxiety disorder: Code(s): F41.1 - Generalized anxiety disorder Category: Medical Plan: As above. (4) GINETTE (iron deficiency anemia): Code(s): D50.9 - Iron deficiency anemia, unspecified Category: Medical Plan: Compliant with iron supplement. (5) Vitamin B12 deficiency: Code(s): E53.8 - Deficiency of other specified B group vitamins Category: Medical Plan: Takes B12 orally. Plan Labs ordered today. Follow up in 6 months for a physical. Sooner if needed. Patient understands and agrees with the plan. Orders: Orders Comprehensive Met. Panel Today D50.9 - Iron deficiency anemia, unspecified, E53.8 - Deficiency of other specified B group vitamins, E55.9 - Vitamin D deficiency, unspecified, F33.41 - Major depressive disorder, recurrent, in partial remission, F41.1 - Generalized anxiety disorder, F90.2 - Attention-deficit hyperactivity disorder, combined type, Z90.3 - Acquired absence of stomach [part of] Complete Blood Count Auto Diff Today D50.9 - Iron deficiency anemia, unspecified, E53.8 - Deficiency of other specified B group vitamins, E55.9 - Vitamin D deficiency, unspecified, F33.41 - Major depressive disorder, recurrent, in partial remission, F41.1 - Generalized anxiety disorder, F90.2 - Attention-deficit hyperactivity disorder, combined type, Z90.3 - Acquired absence of stomach [part of] Vitamin B12 and Folate Today D50.9 - Iron deficiency anemia, unspecified, E53.8 - Deficiency of other specified B group vitamins, E55.9 - Vitamin D deficiency, unspecified, F33.41 - Major depressive disorder, recurrent, in partial remission, F41.1 - Generalized anxiety disorder, F90.2 - Attention-deficit hyperactivity disorder, combined type, Z90.3 - Acquired absence of stomach [part of] Vitamin A Today D50.9 - Iron deficiency anemia, unspecified, E53.8 - Deficiency of other specified B group vitamins, E55.9 - Vitamin D deficiency, unspecified, F33.41 - Major depressive disorder, recurrent, in partial remission, F41.1 - Generalized anxiety disorder, F90.2 - Attention-deficit hyperactivity disorder, combined type, Z90.3 - Acquired absence of stomach [part of] Vitamin D 25-OH Total Today D50.9 - Iron deficiency anemia, unspecified, E53.8 - Deficiency of other specified B group vitamins, E55.9 - Vitamin D deficiency, unspecified, F33.41 - Major depressive disorder, recurrent, in partial remission, F41.1 - Generalized anxiety disorder, F90.2 - Attention-deficit hyperactivity disorder, combined type, Z90.3 - Acquired absence of stomach [part of] TSH reflex Free T4 Today D50.9 - Iron deficiency anemia, unspecified, E53.8 - Deficiency of other specified B group vitamins, E55.9 - Vitamin D deficiency, unspecified, F33.41 - Major depressive disorder, recurrent, in partial remission, F41.1 - Generalized anxiety disorder, F90.2 - Attention-deficit hyperactivity disorder, combined type, Z90.3 - Acquired absence of stomach [part of] IRON PROFILE Today D50.9 - Iron deficiency anemia, unspecified, E53.8 - Deficiency of other specified B group vitamins, E55.9 - Vitamin D deficiency, unspecified, F33.41 - Major depressive disorder, recurrent, in partial remission, F41.1 - Generalized anxiety disorder, F90.2 - Attention-deficit hyperactivity disorder, combined type, Z90.3 - Acquired absence of stomach [part of] Magnesium Today D50.9 - Iron deficiency anemia, unspecified, E53.8 - Deficiency of other specified B group vitamins, E55.9 - Vitamin D deficiency, unspecified, F33.41 - Major depressive disorder, recurrent, in partial remission, F41.1 - Generalized anxiety disorder, F90.2 - Attention-deficit hyperactivity disorder, combined type, Z90.3 - Acquired absence of stomach [part of] Vitamin B1 Today D50.9 - Iron deficiency anemia, unspecified, E53.8 - Deficiency of other specified B group vitamins, E55.9 - Vitamin D deficiency, unspecified, F33.41 - Major depressive disorder, recurrent, in partial remission, F41.1 - Generalized anxiety disorder, F90.2 - Attention-deficit hyperactivity disorder, combined type, Z90.3 - Acquired absence of stomach [part of] Medications: Changed From methylphenidate HCl ER (Concerta) Partial Fill upon patient request. 36 mg PO QAM 60 days 60 tabs 0RF F98.8 - Other specified behavioral and emotional disorders with onset usually occurring in childhood and adolescence To methylphenidate HCl ER (Concerta) Partial Fill upon patient request. 36 mg PO QAM 30 days 30 tabs 0RF F98.8 - Other specified behavioral and emotional disorders with onset usually occurring in childhood and adolescence Discontinued polyethylene glycol 3350 (Miralax) Discontinued Reason: Doctor's Order 17 grams PO BID 510 grams 2RF fexofenadine (Allergy Relief (fexofenadine)) Discontinued Reason: Doctor's Order 180 mg PO DAILY 90 tabs 3RF
[2024-03-04 08:41] VITALS: BP 112/82; BMI 36.1
== END 2024-03-04 09:20 | disposition home or self-care (01) ==
PROVIDERS: PCP Physician Assistant; Visit Provider Physician Assistant
DX: F90.2 Attention-deficit hyperactivity disorder, combined type (principal); F33.41 Major depressive disorder, recurrent, in partial remission; F41.1 Generalized anxiety disorder; D50.9 Iron deficiency anemia, unspecified; E53.8 Deficiency of other specified B group vitamins

== ENCOUNTER → 2024-03-04 08:22 | Outpatient (BNVA) | payer OTHER, SELFPAY | PROVIDERS: PCP Internal Medicine; Visit Provider Physician Assistant ==

== ENCOUNTER 2024-05-17 10:28 | Outpatient (AMB) | payer OTHER, SELFPAY ==
--- NOTE | 2024-05-17 10:33 | HO.SPINEOV ---
Vital Signs 05/17/24 10:46 Height 5 ft 5 in Weight 204 lb BMI 33.9 Intake Visit Reasons: LBP Intake Note: Ms. Bishop is here today c/o Low back pain. Search Engine Marketing Specialist Required: No Allergies amoxicillin Allergy (Severe, Verified 05/17/24 10:46) throat swelling strawberry Allergy (Unknown, Verified 11/26/23 08:17) Hives Physical Exam Vital Signs: BMI result Body Mass Index 33.9 Assessment & Plan Assessment & Plan (1) Back pain: Code(s): M54.9 - Dorsalgia, unspecified Category: Medical Plan Dear Suzanna, Thank you for referring Mrs Bishop to our office today. 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 Generally it is centered over the middle of the lower lumbar sacral junction slightly more of the left and will radiate just inferiorly. She does not have any radiculopathy down the leg. She previously had that about 10 years ago when she was diagnosed with a herniated disc at L5-S1 on the left side but that went away. The patient started to lose weight, about 45 lb or so last year and when that started the pain intensified significantly. It starts as soon as she gets up in the morning and gets worse as the day goes on. 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 She has also tried [id number] pain medications as well such as anti-inflammatories, Tylenol etc.. She has also tried meloxicam. She underwent physical therapy awhile back and still continues to do the exercises as prescribed by the therapist. She underwent a cortisone injection with Dr. Clayton, and then a subsequent follow-up injection. She is not sure if these were epidurals or localized injections. She had an MRI done at the [facility], and this showed ongoing degenerative disc disease L4-5 and continued disc herniation on the left at L5-S1 PMH: She is reasonably healthy, she had tonsillectomy, open repair of a mann's fracture in her heel, other than that she is healthy. Social hx: She has not smoke, drink use any recreational drugs Medications: Gabapentin, oxycodone, Flonase, escitalopram, meloxicam, methylphenidate, omeprazole, semaglutide Allergies: Penicillin Physical exam: Awake alert oriented no acute distress, patient has some limitation with hip flexion causing back pain on the left, gross motor strength and reflexes are normal, patient did have positive straight leg raise at about 45 degrees generating back pain but no leg pain. The CHELSEA testing on the left side did reproduce low back pain. Positive finger Adolfo test. 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 For whatever reason it started when she lost about 45 lb. The pain is present all day, gets worse as the day goes on. As above she has been through conservative management. I think there is 2 potential sources for her pain. The 1st could be the disc herniation on the left at L5-S1. Typically Dr. Melgar would reserve surgery for patients who have radicular symptoms down the leg as the success for microdiskectomy with back pain alone can be somewhat unpredictable. It would be helpful if we got a copy of the records from Dr. Clayton about where he did the injection because she did have about 30% pain relief with the injection. A 2nd potential option is the SI joint on the left. She did have 3 vaginal births and the pain that she is experiencing now was present during that time and it get worse during the pregnancies. She did have physical exam findings consistent with localizing to the SI joint. She could have a degree of SI joint instability causing the pain. Once I have the records from Dr. Clayton, I will review everything with Dr. Melgar and get back to the patient. Thank you for allowing us to care for your patient. The total time spent with this visit with this patient was 45 minutes reviewing history, physical exam, lumbar imaging review, and implementation of treatment plan or further diagnostic testing Wilfredo Melgar MD,PhD [facility] Coding Level of Care Code New Pt Level 4 (18690) Diagnoses Back pain M54.9
[2024-05-17 10:46] VITALS: BMI 33.9
== END 2024-05-17 11:41 | disposition home or self-care (01) ==
LOC: HO.HNS 10:29
PROVIDERS: PCP Physician Assistant; Referring Provider Physician Assistant; Visit Provider Physician Assistant
DX: M54.9 Dorsalgia, unspecified (principal)
CPT/HCPCS: 99204

== ENCOUNTER → 2024-05-17 10:28 | Outpatient (BNVA) | payer OTHER, SELFPAY | PROVIDERS: PCP Physician Assistant; Referring Provider Physician Assistant; Visit Provider Physician Assistant ==

== ENCOUNTER 2024-08-25 12:20 | Outpatient (REF) | payer OTHER, SELFPAY ==
--- NOTE | ~2024-08-25 | XR_ITS ---
EXAMINATION: XR BILATERAL HIPS WITH AP PELVIS CLINICAL INFORMATION: M25.551 - Pain in right hip COMPARISON: None available. TECHNIQUE: AP view of the pelvis and frog-leg lateral views of each hip were obtained. FINDINGS: Pelvis x-ray demonstrates IUD projecting right of midline There are mild degenerative changes with osteophytes and sclerosis involving pubic symphysis joint. SI joints are symmetrical with minimal osteophytes.. Right hip joint is congruent without narrowing or osteophytes. The left hip joint is congruent without narrowing or osteophytes. XR/XR hips FLAVIA min 3V IMPRESSION: Mild degenerative changes of SI joints and pubic symphysis joint. IUD. Unremarkable hips Electronically signed by: Tyrel Snyder MD 08/25/2024 01:12 PM EDT
--- OUTSIDE RECORDS SUMMARY | 2024-08-25 12:55 | XMS_ITS | Clinical Summary ---
Author Organization [facility] Address [address] [place] [address] Care Team Providers Care Filling Layer Up Name Role Phone Estrella Villeda MD Primary Care Provider [phone] Surgical History Surgery Date Site/Laterality Comments OTHER SURGICAL HISTORY PROCEDURE: [place] ADENOIDECTOMY PRIMARY <AGE 14 OTHER SURGICAL HISTORY 08/17/2010 PROCEDURE: [place] ESOPHAGOSCOPY FLEXIBLE REMOVAL FOREIGN BODY; COMMENT: Food; [facility] ESOPHAGOGASTRODUODENOSCOPY 11/13/10 PROCEDURE: [place] ESOPHAGOGASTRODUODENOSCOPY TRANSORAL DIAGNOSTIC; COMMENT: normal TONSILLECTOMY PROCEDURE: HISTORICAL TONSILLECTOMY; COMMENT: 2010 OTHER SURGICAL HISTORY 03/07/2017 N/A PROCEDURE: [place] RPR PARAESOPH HIATAL HERNIA W/THORCOM W/O MESH BARIATRIC SURGERY 03/07/2017 N/A PROCEDURE: [place] LAPS GSTRC RSTRICTIV PX LONGITUDINAL GASTRECTOMY; COMMENT: laparoscopic sleeve of gastrectomy Medical History Medical History Date Comments Anxiety DX:Anxiety Depression DX:Depression Eosinophilic esophagitis DX:Eosi nophilic esophagitis Morbid obesity (CMS/HCC V24, CMS/HCC V28) DX:Morbid obesity ([facility]) Lumbago DX:Lumbago Bowel trouble DX:Bowel trouble Family History Medical History Relation Name Comments Thyroid disease Mother hypothyroid Asthma Son 1 Relation Name Status Comments Brother Alive healthy Father Alive unknown Maternal Grandfather Alive unknown Maternal Grandmother copd Mother Alive thyroid Son 1 Son 2 Alive healthy mild as thma Son 3 Alive healthy, mild a sthma Social History Tobacco Use Types Packs/Day Years Used Date Smoking Tobacco: Former Cigarettes Q uit: 02/25/2008 Smokeless Tobacco: Never Alcohol Use Standard Drinks/Week Comments Yes 0.8 (1 standard drink = 0.6 oz p ure alcohol) Comments Unknown Sex and Gender Information Value Date Recorded Sex Assigned at Not on file Legal Sex Female 9:37 AM EST Gender Identity Not on file Sexual Orientation Not on file Obstetrics History Last Filed Vital Signs Vital Sign Reading Time Taken Comments Blood Pressure 141/81 01/09/2022 2:53 PM EST Sit ting Left arm Pulse 110 01/09/2022 2:53 PM EST Temperature - - Respiratory Rate - - Oxygen Saturation - - Inhaled Oxygen Concentration - - Weight 107 kg (235 lb) 01/31/2022 2:45 PM EST Height 167.6 cm (5' 6 ) 01/31/2022 2:45 PM EST Body Mass Index 37.93 01/31/2022 2:45 PM EST Plan of Treatment Health Maintenance Due Date Last Done Comments Breast Cancer Screening 1982 Hepatitis B Vaccines (1 of 3 - 19+ 3-dose series) 2001 Cervical Cancer Screening: Pap Smear 09/29/2003 Cholesterol Screening (Lipid Panel) 02/02/2022 Depression Screening 02/02/2022 HIV Screening 02/02/2022 Hepatitis C Screening 02/02/2022 Social Influencers of Health Screening 02/02/2022 COVID-19 Vaccine ( season) 2023 12/01/2020, 03/03/2020, 02/11/2020 Influenza Vaccine (Season Ended) 2024 12/11/2018, 11/06/2016, 12/27/2015, Additional history exists DTaP,Tdap,and Td Vaccines (4 - Td or Tdap) 06/04/2033 06/05/2023, 06/06/2011, 12/06/2009 HIB Vaccines Aged Out No longer eligi ble based on patient's age to complete this topic HPV Vaccines Aged Out No longer eligi ble based on patient's age to complete this topic Hepatitis A Vaccines Aged Out No long er eligible based on patient's age to complete this topic IPV Vaccines Aged Out No longer eligi ble based on patient's age to complete this topic MMR Vaccines Aged Out No longer eligi ble based on patient's age to complete this topic Meningococcal ACWY Vaccine Aged Out N o longer eligible based on patient's age to complete this topic Meningococcal B Vaccine Aged Out No l onger eligible based on patient's age to complete this topic Pneumococcal Vaccine: Pediatrics (0 to 5 Years) and At-Risk Patients (6 to 64 Years) Aged Out No longer eligible based on patient's age to complete this topic RSV Immunization Patients Under 20 months Aged Out No longer eligible based on patient's age to complete this topic Varicella Vaccines Aged Out No longer eligible based on patient's age to complete this topic Care Teams Filling Layer Up Relationship Specialty Start Date End Date Estrella Villeda MD PCP - General Internal Medicine 10/02/21
--- OUTSIDE RECORDS SUMMARY | 2024-08-25 12:55 | XMS_ITS | Clinical Summary ---
Author Organization [facility] Address [address] [place] [address] Care Team Providers Care Stone Setter Apprentice Name Role Phone Estrella Villeda MD Primary Care Provider [phone] Allergies Active Allergy Reactions Criticality Noted Date Comments Amoxicillin 01/09/2022 Medications Medication Sig Dispensed Refills Start Date End Date Status methylphenidate (CONCERTA) 27 MG ER tablet Take 1 tablet (27 mg total) by mouth every morning. 0 12/09/2021 Active omeprazole (PriLOSEC) 20 MG capsule Take 1 capsule (20 mg total) by mouth daily. 0 10/30/2021 Active ibuprofen 800 MG tablet Take 1 tablet (800 mg total) by mouth every 8 (eight) hours. 0 12/13/2021 Active Allergy Relief 180 MG tablet Take 1 tablet (180 mg total) by mouth daily. 0 12/31/2021 Active Active Problems Problem Noted Date Diagnosed Date Easy bruising 01/09/2022 Thrombocytosis 01/09/2022 Other dietary vitamin B12 deficiency anemia 12/25 Right foot pain 01/09/2022 H/O laparoscopic partial gastrectomy 01/09/2022 Social History Tobacco Use Types Packs/Day Years Used Date Smoking Tobacco: Former Cigarettes Q uit: 02/25/2008 Smokeless Tobacco: Never Tobacco Cessation:Counseling Given: Not Answered Alcohol Use Standard Drinks/Week Comments Yes 1 (1 standard drink = 0.6 oz pur e alcohol) Sex and Gender Information Value Date Recorded Sex Assigned at Not on file Gender Identity Not on file Sexual Orientation Not on file Job Start Date Occupation Industry Not on file Not on file Not on file Last Filed Vital Signs Vital Sign Reading Time Taken Comments Blood Pressure 141/81 01/09/2022 2:53 PM EST Pulse 110 01/09/2022 2:53 PM EST Temperature 36.9 C (98.4 F) 01/09/2022 2:53 PM EST Respiratory Rate - - Oxygen Saturation 98% 01/09/2022 2:53 PM EST Inhaled Oxygen Concentration - - Weight 108.5 kg (239 lb 3.2 oz) 01/09/2022 2:53 PM EST Height 166.4 cm (5' 5.5 ) 01/09/2022 2:53 PM EST Body Mass Index 39.2 01/09/2022 2:53 PM EST Plan of Treatment Health Maintenance Due Date Last Done Comments Hepatitis B Vaccines (1 of 3 - 3-dose series) 1982 Hepatitis C Screening 1980 COVID-19 Vaccine (#1) 03/31/1983 Depression Screening 1994 Preventative Health Evaluation 2000 Cervical Cancer Screening (Pap Smear) 09/29/2003 DTap / Tdap / Td (2 - Td or Tdap) 06/05/2021 06/06/2011 Influenza Vaccine (Season Ended) 2024 12/11/2018, 11/06/2016, 12/27/2015, Additional history exists Pneumococcal Vaccine Aged Out No long er eligible based on patient's age to complete this topic RSV Ped < 20 months Aged Out No longe r eligible based on patient's age to complete this topic Care Teams Stone Setter Apprentice Relationship Specialty Start Date End Date Estrella Villeda MD PCP - General Internal Medicine 01/09/22
== END 2024-08-25 12:21 | disposition home or self-care (01) ==
LOC: HO.HMGCX 12:20
PROVIDERS: PCP Physician Assistant; Visit Provider Physician Assistant
DX: M25.551 Pain in right hip (principal); M25.552 Pain in left hip
CPT/HCPCS: 73522

== ENCOUNTER → 2024-08-25 12:46 | Outpatient (BNV) | payer OTHER, SELFPAY | PROVIDERS: PCP Physician Assistant; Visit Provider Radiology Diagnostic Radiology | DX: M25.551 Pain in right hip (principal); M25.552 Pain in left hip | CPT/HCPCS: 73522 ==

== ENCOUNTER 2024-12-01 07:52 | Outpatient (AMB) | payer OTHER, SELFPAY ==
[2024-12-01 07:58] VITALS: BP 124/94; PULSE 94; RESP 14; TEMP 36.9; O2SAT 98; BMI 30.3
--- NOTE | 2024-12-01 07:58 | A.OFFPC_ITS ---
Vital Signs 12/01/24 07:58 Height 5 ft 5 in Weight 182 lb 2 oz BMI 30.3 BP 124/94 H Blood Pressure Location Lt brachial Position Sitting Respiration 14 Pulse 94 Pulse Source Pulse Oximeter Temp 98.4 F Temp Source Oral Pulse Oximetry (%) 98 Oxygen Delivery Method Room Air Intake Visit Reasons: Heart Palpitations Intake Note: Heart palpatations Optometrist President/Practice Owner Required: No Allergies amoxicillin Allergy (Severe, Verified 12/01/24 07:59) throat swelling strawberry Allergy (Unknown, Verified 12/01/24 07:59) Hives Medication List - Last Reconciled 12/01/24 by Suzanna Urbano PA-C blood-glucose sensor (ImmunotEGG Mason 3 Sensor device) Apply every 14 days As directed to monitor blood glucose clotrimazole 1% 1 appl topical BID 2 weeks epinephrine IM epinephrine (EpiPen 2-Taran) 0.3 mg (0.3 mL) IM Q10M PRN escitalopram oxalate 20 mg PO DAILY ferrous sulfate 325 mg PO DAILY fluticasone propionate 50 mcg/actuation (Flonase Allergy Relief) 2 sprays intranasal DAILY gabapentin 600 mg (2 x 300 mg) PO BID 90 days methylphenidate HCl ER (Concerta) 36 mg PO QAM 30 days nystatin 1 appl topical TID 10 days nystatin 1 appl topical TID omeprazole 20 mg PO DAILY oxycodone 5 mg PO Q12H PRN 28 days rizatriptan 5 mg PO Q2-4H PRN tirzepatide (weight loss) (Zepbound) 15 mg (0.5 mL) subcut QWEEK Tobacco use date assessed: 12/01/24 Dental Screening Dental Screen Date: 12/01/24 Did you have a dental visit in the last 12 months?: Yes Did you have a dental problem in the last 6 months where you did not have access to dental care?: No Was dental information given to patient?: Patient has dentist HPI Heart Palpitations HPI Details Patient is a 44-year-old female who presents today for an acute problem visit. CV: She states that she has been experiencing palpitations that is occurring almost every day multiple times a day. This has been going on for the last week or so. She states it is stressing her out because she states that she will be sitting there and all of a sudden feel like her heart is racing. It can come on out of nowhere. Initially she thought it was related to caffeine but upon paying attention to this it does not seem to be related. She has also cut out caffeine for the last week and has not had any improvement of symptoms. She has not had any change in medications. She tries to stay well hydrated but it does admit that she could do better. She is at times getting lightheaded mostly with sitting and standing up but not well she is experiencing the palpitations. No chest pain or shortness on breath. No syncope, headache or vision changes. She is on Zepbound and is still losing weight. Endo: Has a history of prediabetes. No polyuria or polydipsia. GI: Has a history of GERD and is currently well-controlled with omeprazole. MSK: Has a history of ongoing chronic back pain and has been managed on oxycodone 5 mg twice a day as needed along with Tylenol and ibuprofen. Has a hard time taking NSAIDs due to GERD. Uses gabapentin if needed as well. Since the weight loss she has had an increase in generalized joint pains. She has followed with physiatry who thought possibly it was caused by the reduction in muscle mass. General : s/p gastric sleeve and is compliant with iron and B12 supplements. Does have fatigue. Derm: Getting frequent rashes from excess skin. She is using nystatin powder and cream. Has been referred to Plastic surgery. Mammo: Up-to-date, December 2023-at [facility], scheduled 01/21 [place]: Overdue [facility] Medical History (Updated 12/01/24 @ 08:35 by Suzanna Urbano PA-C) Major depression in partial remission Dyslipidemia Morbid obesity with BMI of 40.0-44.9, adult Depression Anxiety Headache IBS (irritable bowel syndrome) Surgical History (Updated 07/31/23 @ 13:06 by Suzanna Urbano PA-C) S/P gastric sleeve procedure Family History (Updated 07/31/23 @ 12:36 by Telma Pace CMA) Mother Hypercholesteremia Diabetes Maternal Grandmother Asthma Hypercholesteremia Social History (Updated 07/31/23 @ 12:28 by Telma Pace CMA) Housing: House Patient Tobacco Use Status: Former Tobacco user Years Smoked: 20 e-Cigarette/Vaping Use: Never Used Second Hand Smoke Exposure: No service: No Current occupational status: employed Current occupation: front desk coordinator at [employer] Current occupational exposures/hazards: No Cognitive needs: No Hearing needs: No Vision needs: No Questionnaire Thrive Questionnaire Date Thrive assessed: 02/26/24 I am a: Patient What is your living situation today?: I have a steady place to live Within the past 12 months, did the food you bought not last and you didn't have the money to get more?: Never true Within the past 12 months, did you worry whether your food would run out before you got money to buy more?: Never true Do you have trouble paying for medicines?: No Do you have trouble getting transportation to medical appointments?: No Do you have trouble paying your heating and electricity bill?: No Do you have trouble taking care of your child, family member or friend?: No Do you have trouble with day-to-day activities such as bathing, preparing meals, shopping, managing finances, etc.?: No Are you currently unemployed and looking for a job?: No Are you interested in more education?: No Please select the resources that you would like help with: None Currently or been in a relationship where the following occur: No concerns reported THRIVE Score: 0 CINDY-7 AMB Questionnaire CINDY-7 Date CINDY - 7 assessed: 07/31/23 Source: Developed by Drs. Deni Lemus, Chantal Sarabia, Shaji Talbot and colleagues, with an educational lisa from [employer]. Physical exam (Primary Care) Vital Signs: Last Vital Signs Temp 98.4 F 12/01/24 07:58 Pulse 94 12/01/24 07:58 Resp 14 12/01/24 07:58 BP 124/94 H 12/01/24 07:58 Pulse Ox 98 12/01/24 07:58 Oxygen Delivery Method Room Air 12/01/24 07:58 BMI result Body Mass Index 30.3 Tobacco/Smoking Status: Tobacco use Status Tobacco use date assessed 12/01/24 12/01/24 08:04 Patient Tobacco Use Status Former Tobacco user 12/01/24 08:00 e-Cigarette/Vaping Use Never Used 12/01/24 08:00 Thrive Assessment: Date of Thrive Assessment Date Thrive assessed 02/26/24 12/01/24 08:00 Currently or been in a relationship where the following occur: No concerns re ported Const Orientation/consciousness: patient oriented x3 HENMT Ears: hearing grossly normal bilaterally Neck Thyroid: Thyroid normal Lymphatic: no lymphadenopathy noted Resp Auscultation: clear to auscultation bilaterally Cardio Rate: regular rate Rhythm: regular rhythm Heart sounds: S1 normal heart sound present and S2 normal heart sound present GI Inspection: Yes normal to inspection Palpation (GI): Soft to palpation and Other GI palpation findings present (nontender, no cva tenderness) Auscultation: normoactive bowel sounds Rectal Exam - Female: deferred Skin General skin exam: no rashes or lesions noted Neuro General: patient oriented x3, gait normal and no focal motor deficits Office Procedures EKG Details: EKG today in office is normal sinus rhythm 68822-Lwtshxrzfkrzjbtcr, Complete Coding Level of Care Code Est Pt Level 4 (41239) Complex EM visit Add On G2211 Diagnoses Prediabetes R73.03 Vitamin B12 deficiency E53.8 Heart palpitations R00.2 Lightheadedness R42 Polyarthralgia M25.50 CPT Codes EKG - CPT: 62570-Iuvszoakruzbzyhut, Complete ([id number]) Assessment & Plan Assessment & Plan (1) Prediabetes: Code(s): R73.03 - Prediabetes Category: Medical Plan: A1c ordered (2) Vitamin B12 deficiency: Code(s): E53.8 - Deficiency of other specified B group vitamins Category: Medical Plan: Labs ordered (3) Heart palpitations: Code(s): R00.2 - Palpitations Category: Medical Plan: EKG today in office is normal sinus rhythm. Holter monitor ordered Echo ordered We will follow up pending test results Labs also ordered Advised to increase hydration and to make sure she is eating enough (4) Lightheadedness: Code(s): R42 - Dizziness and giddiness Category: Medical Plan: As above (5) Polyarthralgia: Code(s): M25.50 - Pain in unspecified joint Category: Medical Plan: Arthritis labs ordered we will follow up pending test results. Orders: Orders ECG holter monitor 24 hour 12/01/24 D50.9 - Iron deficiency anemia, unspecified, E53.8 - Deficiency of other specified B group vitamins, E55.9 - Vitamin D deficiency, unspecified, E83.41 - Hypermagnesemia, R00.2 - Palpitations, R42 - Dizziness and giddiness, R73.03 - Prediabetes CA echo transthoracic complete 12/01/24 D50.9 - Iron deficiency anemia, unspecified, E53.8 - Deficiency of other specified B group vitamins, E55.9 - Vitamin D deficiency, unspecified, E83.41 - Hypermagnesemia, R00.2 - Palpitations, R42 - Dizziness and giddiness, R73.03 - Prediabetes Complete Blood Count Auto Diff 12/01/24 D50.9 - Iron deficiency anemia, unspecified, E53.8 - Deficiency of other specified B group vitamins, E55.9 - Vitamin D deficiency, unspecified, E83.41 - Hypermagnesemia, R00.2 - Palpitations, R42 - Dizziness and giddiness, R73.03 - Prediabetes Comprehensive Sophia. Panel Fast 12/01/24 D50.9 - Iron deficiency anemia, unspecified, E53.8 - Deficiency of other specified B group vitamins, E55.9 - Vitamin D deficiency, unspecified, E83.41 - Hypermagnesemia, R00.2 - Palpitations, R42 - Dizziness and giddiness, R73.03 - Prediabetes Hemoglobin A1c 12/01/24 D50.9 - Iron deficiency anemia, unspecified, E53.8 - Deficiency of other specified B group vitamins, E55.9 - Vitamin D deficiency, unspecified, E83.41 - Hypermagnesemia, R00.2 - Palpitations, R42 - Dizziness and giddiness, R73.01 - Impaired fasting glucose, R73.03 - Prediabetes Magnesium 12/01/24 D50.9 - Iron deficiency anemia, unspecified, E53.8 - Deficiency of other specified B group vitamins, E55.9 - Vitamin D deficiency, unspecified, E83.41 - Hypermagnesemia, R00.2 - Palpitations, R42 - Dizziness and giddiness, R73.03 - Prediabetes Erythrocyte Sedimentation Rate 12/01/24 M25.50 - Pain in unspecified joint Lyme IgG/IgM w/reflex to WB 12/01/24 M25.50 - Pain in unspecified joint PAZ Reflex Titer and Pattern 12/01/24 M25.50 - Pain in unspecified joint RT home sleep study 12/01/24 D50.9 - Iron deficiency anemia, unspecified, E53.8 - Deficiency of other specified B group vitamins, E55.9 - Vitamin D deficiency, unspecified, E83.41 - Hypermagnesemia, R00.2 - Palpitations, R06.81 - Apnea, not elsewhere classified, R42 - Dizziness and giddiness, R73.03 - Prediabetes TSH reflex Free T4 12/01/24 D50.9 - Iron deficiency anemia, unspecified, E53.8 - Deficiency of other specified B group vitamins, E55.9 - Vitamin D deficiency, unspecified, E83.41 - Hypermagnesemia, R00.2 - Palpitations, R42 - Dizziness and giddiness, R73.03 - Prediabetes Lutenizing Hormone 12/01/24 D50.9 - Iron deficiency anemia, unspecified, E53.8 - Deficiency of other specified B group vitamins, E55.9 - Vitamin D deficiency, unspecified, E83.41 - Hypermagnesemia, R00.2 - Palpitations, R42 - Dizziness and giddiness, R73.03 - Prediabetes Estrad Free (Tot Ultra + Free) 12/01/24 D50.9 - Iron deficiency anemia, unspecified, E53.8 - Deficiency of other specified B group vitamins, E55.9 - Vitamin D deficiency, unspecified, E83.41 - Hypermagnesemia, R00.2 - Palpitations, R42 - Dizziness and giddiness, R73.03 - Prediabetes Follicle Stimulating Hormone 12/01/24 D50.9 - Iron deficiency anemia, u nspecified, E53.8 - Deficiency of other specified B group vitamins, E55.9 - Vitamin D deficiency, unspecified, E83.41 - Hypermagnesemia, R00.2 - Palpitations, R42 - Dizziness and giddiness, R73.03 - Prediabetes Vitamin B12 and Folate 12/01/24 D50.9 - Iron deficiency anemia, unspecified, E53.8 - Deficiency of other specified B group vitamins, E55.9 - Vitamin D deficiency, unspecified, E83.41 - Hypermagnesemia, R00.2 - Palpitations, R42 - Dizziness and giddiness, R73.03 - Prediabetes Ferritin 12/01/24 D50.9 - Iron deficiency anemia, unspecified, E53.8 - Deficiency of other specified B group vitamins, E55.9 - Vitamin D deficiency, unspecified, E83.41 - Hypermagnesemia, R00.2 - Palpitations, R42 - Dizziness and giddiness, R73.03 - Prediabetes IRON PROFILE 12/01/24 D50.9 - Iron deficiency anemia, unspecified, E53.8 - Deficiency of other specified B group vitamins, E55.9 - Vitamin D deficiency, unspecified, E83.41 - Hypermagnesemia, R00.2 - Palpitations, R42 - Dizziness and giddiness, R73.03 - Prediabetes Rheumatoid Factor 12/01/24 M25.50 - Pain in unspecified joint UA CC w/rflx Micro + Cult 12/01/24 M25.50 - Pain in unspecified joint, R30.0 - Dysuria Microalbumin, Random (w Creat) 12/01/24 M25.50 - Pain in unspecified joint Referrals HVAC SHEET METAL INSTALLER Referral [id number] - Encounter for gynecological examination (general) (routine) without abnormal findings
--- OUTSIDE RECORDS SUMMARY | 2024-12-01 07:59 | XMS_ITS | Clinical Summary ---
Author Organization [facility] Address [address] [place] [address] Care Team Providers Care Ms Sql Developer Name Role Phone Estrella Villeda MD Primary Care Provider [phone] Allergies Active Allergy Reactions Criticality Noted Date [...] Td or Tdap) 06/05/2021 06/06/2011 Influenza Vaccine (#1) 2024 9, 11/06/2016, 12/27/2015, Additional history exists Pneumococcal Vaccine Aged Out No long er eligible based on patient's age to complete this topic RSV Ped < 20 months Aged Out No longe r eligible based on patient's age to complete this topic Care Teams Ms Sql Developer Relationship Specialty Start Date End Date Estrella Villeda MD PCP - General Internal Medicine 01/09/22
--- OUTSIDE RECORDS SUMMARY | 2024-12-01 07:59 | XMS_ITS | Clinical Summary ---
Author Organization [facility] Address [address] [place] [address] Care Team Providers Care Auto Electrician Name Role Phone Estrella Villeda MD Primary Care Provider [phone] Surgical History Surgery Date Site/Laterality Comments OTHER SURGICAL HISTORY PROCEDURE: [place] ADENOIDECTOMY PRIMARY <AGE 14 OTHER SURGICAL HISTORY 08/17/2010 PROCEDURE: [place] ESOPHAGOSCOPY FLEXIBLE REMOVAL FOREIGN BODY; COMMENT: Food; [facility] ESOPHAGOGASTRODUODENOSCOPY 11/13/10 PROCEDURE: [place] ESOPHAGOGASTRODUODENOSCOPY TRANSORAL DIAGNOSTIC; COMMENT: normal TONSILLECTOMY PROCEDURE: HISTORICAL TONSILLECTOMY; COMMENT: 2010 OTHER SURGICAL HISTORY 03/07/2017 N/A PROCEDURE: [place] RPR PARAESOPH HIATAL HERNIA W/THORCOM W/O MESH BARIATRIC SURGERY 03/07/2017 N/A PROCEDURE: [place] LAPS GSTRC RSTRICTIV PX LONGITUDINAL GASTRECTOMY; COMMENT: laparoscopic sleeve of gastrectomy Medical History Medical History Date Comments Anxiety DX:Anxiety Depression DX:Depression Eosinophilic esophagitis DX:Eosi nophilic esophagitis Morbid obesity (CMS/HCC V24, CMS/HCC V28) DX:Morbid obesity ([facility]) Lumbago DX:Lumbago Bowel trouble DX:Bowel trouble [...] 2001 Cervical Cancer Screening: Pap Smear 09/29/2003 HPV Vaccines (1 - 3-dose SCDM series) 2009 Cholesterol Screening (Lipid Panel) 02/02/2022 HIV Screening 02/02/2022 Hepatitis C Screening 02/02/2022 Social Influencers of Health Screening 02/02/2022 Depression Screening 02/25/2024 COVID-19 Vaccine (2024- season) 2024 12/01/2020, 03/03/2020, 02/11/2020 Influenza Vaccine (#1) 2024 9, 11/06/2016, 12/27/2015, Additional history exists DTaP,Tdap,and Td Vaccines (4 - Td or Tdap) 06/04/2033 06/05/2023, 06/06/2011, 12/06/2009 RSV Immunization Adult Patients (1 - 1-dose 75+ series) 2057 HIB Vaccines Aged Out No longer eligi [...] 5 Years) and At-Risk Patients (6 to 49 Years) Aged Out No longer eligible based on patient's age to complete this topic RSV Immunization Patients Under 20 months Aged Out No longer eligible based on patient's age to complete this topic Varicella Vaccines Aged Out No longer eligible based on patient's age to complete this topic Care Teams Auto Electrician Relationship Specialty Start Date End Date Estrella Villeda MD PCP - General Internal Medicine 10/02/21
== END 2024-12-01 08:36 | disposition home or self-care (01) ==
LOC: HO.HMCFM 07:53
PROVIDERS: PCP Physician Assistant; Visit Provider Physician Assistant
DX: R73.03 Prediabetes (principal); E53.8 Deficiency of other specified B group vitamins; R00.2 Palpitations; R42 Dizziness and giddiness; M25.50 Pain in unspecified joint

== ENCOUNTER 2024-12-01 07:52 | Outpatient (REF) | payer OTHER, SELFPAY ==
[2024-12-01 11:48] LABS: MANUAL DIFF FLAG NO
[2024-12-01 11:50] LABS: Hematocrit 42.7 % (37.0-47.0); Hemoglobin 13.9 g/dl (12.0-16.0); Imm Gran Abs Auto 0.01 X10*3/uL (0.00-0.03); Imm Gran Pct Auto 0.2 % (0.0-0.4); Lymphocytes Absolute Auto 1.9 X10*3/uL (1.2-4.9); Mean Corpuscular HGB Conc 32.6 g/dl (31.0-35.0); Mean Corpuscular Hemoglobin 29.2 pg (27.0-33.0); Mean Corpuscular Volume 89.7 fL (80.0-98.0); NRBC Abs Auto 0.000 X10*3/uL (0.0-0.012); NRBC Pct Auto 0.0 /100WBC (0.0-0.2); Platelet Count 519 X10*3/uL (160-400); Red Blood Count 4.76 X10*6/uL (4.20-5.50); White Blood Count 5.5 X10*3/uL (4.8-10.8)
[2024-12-01 12:44] LABS: Folate 6.0 ng/mL (> or = 4.0); Vitamin B12 659 pg/mL (200-900)
[2024-12-01 14:53] LABS: Alanine Aminotransferase 12 U/L (0-31); Albumin Level 4.6 g/dL (3.5-5.0); Alkaline Phosphatase 40 U/L (39-117); Anion Gap 7 (12-20); Aspartate Amino Transferase 16 U/L (5-31); Blood Urea Nitrogen 10 mg/dL (9-16); Calcium 9.2 mg/dL (8.4-10.2); Carbon Dioxide 27 mmol/L (22-29); Chloride 109 mmol/L (96-108); Estimated Glomerular Filt Rate > 60; Iron 107 mcg/dL (30-160); Magnesium 2.5 mg/dL (1.6-2.6); Percent Iron Saturation 51 % (15-50); Potassium 4.2 mmol/L (3.3-5.1); Sodium 139 mmol/L (135-145); Total Iron Binding Capacity 208 mcg/dL (228-428); Total Protein 6.8 g/dL (6.5-8.0); Unsaturated Iron Binding 101 ug/dL
[2024-12-01 14:56] LABS: Appearance Urine Clear; Glucose Urine UA Negative (Negative); PH 7.0 (5.0-9.0); Specific Gravity - Urine 1.025 (1.005-1.025); UMIC TRIGGER UACC YES
[2024-12-01 15:00] LABS: Ferritin 133 ng/mL (10-250)
[2024-12-01 15:10] LABS: UACC Culture Trigger YES
[2024-12-01 15:18] LABS: Microalbum/Creatinine Ratio Ur 5.6 ug/mg cr (<30)
[2024-12-02 05:40] LABS: Follicle Stimulating Hormone 7.9 mIU/mL
[2024-12-02 05:58] LABS: Lyme Abs Screen <0.90 index
[2024-12-08 11:48] LABS: Anti Nuclear Antibody Screen NEGATIVE (NEGATIVE)
[2024-12-16 20:58] LABS: Estradiol Free 1.57 pg/mL; Estradiol, Ultrasensitive 95 pg/mL
== END 2024-12-01 07:53 | disposition home or self-care (01) ==
LOC: HO.WFDLDS 07:52
PROVIDERS: PCP Physician Assistant; Visit Provider Physician Assistant
DX: Z13.220 Encounter for screening for lipoid disorders (principal); R00.2 Palpitations; R42 Dizziness and giddiness; R73.03 Prediabetes; M25.50 Pain in unspecified joint; F41.1 Generalized anxiety disorder; F33.41 Major depressive disorder, recurrent, in partial remission; F90.2 Attention-deficit hyperactivity disorder, combined type; D50.9 Iron deficiency anemia, unspecified; E53.8 Deficiency of other specified B group vitamins; E55.9 Vitamin D deficiency, unspecified; R53.83 Other fatigue; R44.8 Other symptoms and signs involving general sensations and perceptions; E83.41 Hypermagnesemia; R73.01 Impaired fasting glucose; Z90.3 Acquired absence of stomach [part of]; Z79.891 Long term (current) use of opiate analgesic; Z79.899 Other long term (current) drug therapy
CPT/HCPCS: 36415; 80053; 81001; 82043; 82248; 82306; 82570; 82607; 82670; 82681; 82728; 82746; 83001; 83002; 83036; 83540; 83735; 84425; 84443; 84590; 85025; 85652; 86038; 86039; 86431; 86617; 86618; 87086; 93005

== ENCOUNTER → 2025-01-10 08:11 | Outpatient (REF) | payer OTHER, SELFPAY ==
--- NOTE | 2025-01-10 08:27 | CA_ITS ---
Transthoracic Echocardiogram Patient (Last, First, Middle): Jenny Bishop, Gender: F Date of : 1980 Age: 44 Procedure Date: 01/10/2025 Procedure Type: Transthoracic Echocardiogram Location: OP Height: 165.1 cm Weight: 79.38 kg BSA: 1.87 m2 Heart Rate: bpm BP: 122 / 80 mmHg Dredge Mechanic: Referring MD: Suzanna Urbano PA-C Symptoms: R73.03 - Prediabetes Study Quality: Good ECG Rhythm: Sinus Conclusions: - The left ventricular systolic function is low normal. The calculated ejection fraction is 54% by biplane method. - No obvious valvular pathology seen on this study. Findings Left Ventricle Normal left ventricular cavity size. There is normal left ventricular wall thickness. The left ventricular systolic function is low normal. The calculated ejection fraction is 54% by biplane method. There is no evidence of regional wall motion abnormalities. Evidence suggests grade I (mild) diastolic dysfunction. Right Ventricle Normal right ventricular cavity size and systolic function. Atria Both atria are normal in size. Aortic Valve The aortic valve was not well visualized. There is no aortic valve stenosis. There is no aortic valve regurgitation. Mitral Valve The mitral valve appears normal. There is no mitral valve regurgitation. There is no mitral valve stenosis. Pulmonic Valve The pulmonic valve is likely normal. Tricuspid Valve Normal tricuspid valve structure. There is trace tricuspid valve regurgitation. There is no evidence of pulmonary hypertension. Great Vessels The aorta was not well visualized. The sinuses of valsalva is normal in size. Venous The inferior vena cava is normal in size and collapses greater than 50% with inspiration. Pericardium/Pleural There is no evidence of pericardial effusion. Prior Study Comparison No prior study available for comparison. Recommendations, Care & Conclusions No obvious valvular pathology seen on this study. Measurements 2D Linear Measurements IVSd: 0.88 0.6-0.9/0.6-1.0 cm LVIDd: 4.31 3.9-5.3/4.2-5.9 cm LVIDd Index: 2.30 2.4-3.2/2.2-3.1 cm/m2 LVIDs: 2.98 2.0-3.6 cm LVPWd: 0.91 0.7-1.1 cm Ao Root: 3.30 2.1-3.5 cm LA Diam: 3.00 2.7-3.8/3.0-4.0 cm LAIDs Index: 1.60 1.5-2.3 cm/m2 LV Mass: 153.14 67-162/88-224 g LV Mass Index: 81.89 43-95/49-115 g/m2 LVOT Diam: 2.20 3.0+(-)1.3 cm 2D Systolic Function EF 4C: 50.80 >55% EF 2C: 59.30 >55% EF BiP: 54.30 >55% Mitral Valve MV Pk E: 0.56 MV PK A: 0.98 MV Decel Time: 137.00 E/A: 0.60 E'Lateral: 14.50 E'Medial: 8.49 E/E' Med: 6.60 E/E' Lat: 3.80 PHT: 40.00 MVA PHT: 5.50 Decel [place]: 4.07 Aortic Valve AoV Pk Jean-Paul: 1.33 AoV Mn Jean-Paul: 1.04 AoV VTI: 0.28 AoV Pk Grad: 7.00 Aov Mn Grad: 5.00 CHRISTA Cont.VTI: 2.48 LVOT LVOT Pk Jean-Paul: 0.97 LVOT Mn Jean-Paul: 0.69 LVOT VTI: 0.18 LVOT Pk Grad: 4.00 LVOT Mn Grad: 2.00 LVOT Diam: 2.20 LVOT Area: 3.80 Diastolic Function MV Pk E: 0.56 MV Pk A: 0.98 E/A: 0.60 E'Medial: 8.49 E/E' Med: 6.60 E' Laterial: 14.50 E/E' Lat: 3.80 Right Ventricle TAPSE (mm): 26.00 TVS' Jean-Paul: 12.00 Tricuspid Valve TR Pk Jean-Paul: 1.72 TR Pk Grad: 12.00 RA Press: 3.00 RVSP: 15.00 Great Vessels Aorta Ao Root-2D: 3.30 2.0-3.7 cm Pulmonary Valve PV Pk Jean-Paul: 0.89 Peak PV Grad: 3.00 Updated in Other Vendor System with Status of Final Rene Calzada MD electronically signed on 01/11/2025 4:01:23 PM with status of Final
--- NOTE | 2025-01-10 08:27 | HM_ITS ---
* Total monitoring time one day. * Underlying rhythm is sinus with an average rate of 92/Min. * Rare ventricular ectopy. * No significant pauses or high-grade AV blocks. * No patient markers or diary events. MTDD
== END ==
LOC: HO.CARD 08:11
PROVIDERS: PCP Physician Assistant; Visit Provider Physician Assistant
DX: R73.03 Prediabetes (principal); E53.8 Deficiency of other specified B group vitamins; E55.9 Vitamin D deficiency, unspecified; D50.9 Iron deficiency anemia, unspecified; R00.2 Palpitations; R42 Dizziness and giddiness
CPT/HCPCS: 93225; 93306

== ENCOUNTER → 2025-01-10 08:27 | Outpatient (BNV) | payer OTHER, SELFPAY | PROVIDERS: PCP Physician Assistant; Visit Provider Internal Medicine | DX: I51.89 Other ill-defined heart diseases (principal); R73.03 Prediabetes | CPT/HCPCS: 93227; 93306 ==

== ENCOUNTER 2025-01-28 12:18 | Outpatient (REF) | payer OTHER, SELFPAY ==
--- NOTE | ~2025-01-28 | XR_ITS ---
EXAMINATION: XR LUMBAR SPINE 2-3 VIEWS HISTORY: M54.50 - Low back pain, unspecified COMPARISON: There are no prior studies for comparison. FINDINGS: AP, lateral, and coned down views of the lumbar spine are submitted. Osseous mineralization is normal. Five nonrib-bearing lumbar vertebral bodies are identified, maintaining normal height and alignment without evidence of fracture or spondylolisthesis. The intervertebral disc spaces are preserved. The posterior elements are intact. The visualized paraspinal soft tissues are unremarkable. IUD is noted in the midline of the pelvis. XR/XR lumbar spine 2-3V IMPRESSION: Unremarkable examination of the lumbar spine. Electronically signed by: Deni Romeo MD 01/28/2025 12:46 PM EST
--- NOTE | ~2025-01-28 | XR_ITS ---
EXAMINATION: XR BILATERAL HIPS WITH AP PELVIS CLINICAL INFORMATION: M25.551 - Pain in right hip COMPARISON: None available. TECHNIQUE: AP view of the pelvis and frog-leg lateral views of each hip were obtained. FINDINGS: Right hip: Joint space is congruent and preserved. No osteophytes are identified. There is no abnormal sclerosis or cystic changes. Left hip: Joint space is congruent and preserved. No osteophytes are identified. There is no abnormal sclerosis or cystic changes. IUD projects in the midline of the pelvis. Mild degenerative changes are present in the SI joints which demonstrates small marginal osteophytes. There is mild sclerosis and osteophytes involving pubic symphysis joint. XR/XR hips FLAVIA min 3V IMPRESSION: Unremarkable bilateral hips. Mild degenerative changes are present in the SI joints and moderate degenerative changes noted in the pubic symphysis joint. Electronically signed by: Tyrel Snyder MD 01/28/2025 12:46 PM [facility]
--- NOTE | ~2025-01-28 | XR_ITS ---
EXAMINATION: XR FOOT, RIGHT CLINICAL INFORMATION: S99.921A - Unspecified injury of right foot, initial encounter COMPARISON: None available. TECHNIQUE: AP, lateral, and oblique views of the right foot. FINDINGS: There is mild hallux valgus deformity. Minute marginal osteophytes are present along the lateral aspect of the first MTP joint. Small chronic ossification is visible at the inferior tip of medial malleolus. Small marginal osteophyte are present involving the tibial plafond and. XR/XR foot RT min 3V IMPRESSION: Mild hallux valgus deformity. Minimal degenerative change of the tibial plafond and first MTP joint. Electronically signed by: Tyrel Snyder MD 01/28/2025 12:48 PM EST
== END 2025-01-28 12:19 | disposition home or self-care (01) ==
LOC: HO.XRAY 12:18
PROVIDERS: PCP Physician Assistant; Visit Provider Physician Assistant
DX: M25.551 Pain in right hip (principal); M25.552 Pain in left hip; S99.921A Unspecified injury of right foot, initial encounter; M54.50 Low back pain, unspecified
CPT/HCPCS: 72100; 73522; 73630

== ENCOUNTER → 2025-01-28 12:22 | Outpatient (BNV) | payer OTHER, SELFPAY | PROVIDERS: PCP Physician Assistant; Visit Provider Radiology Diagnostic Radiology | DX: M16.0 Bilateral primary osteoarthritis of hip (principal); M54.50 Low back pain, unspecified; S99.921A Unspecified injury of right foot, initial encounter; M19.071 Primary osteoarthritis, right ankle and foot; M20.11 Hallux valgus (acquired), right foot | CPT/HCPCS: 72100; 73522; 73630 ==

== ENCOUNTER → 2025-01-31 07:45 | Outpatient (REF) | payer OTHER, SELFPAY ==
--- OUTSIDE RECORDS SUMMARY | 2025-01-28 23:59 | XMS_ITS | Continuity of Care Document ---
Author Organization [facility] [place] [address] [facility] [place] [address]- Care Team Providers Care Laborer Stores Name Role Phone Ronal LOFTON, Estrella Snell Primary Care Physician Encounter 01/21/25 - 01/28/25 [facility] [address], [address] [place] [address]- Attending Physician: Suzanna Pro Admitting Physician: Suzanna Pro Referring Physician: Suzanna Pro Encounter Type: OutPatient One Time Allergies, Adverse Reactions, Alerts Substance Criticality Severity Reaction Reaction Severity Status ampicillin Active amoxicillin Active Strawberries Active Immunizations Given and Recorded Vaccine Date Status Refusal Reason tetanus/diphtheria/pertussis, acel(Tdap) 06/05/23 Given [id number] 12y+ bivalent booster vax 11/08/21 Recorded SARS-CoV-2 (COVID-19) mRNA BNT-162b2 vac 12/01/20 Recorded SARS-CoV-2 (COVID-19) mRNA BNT-162b2 vac 03/03/20 Recorded SARS-CoV-2 (COVID-19) mRNA BNT-162b2 vac 02/11/20 Recorded influenza virus vaccine, inactivated 12/11/18 Willis rded Medications Allergy Relief (Fexofenadine HCl) 180 mg oral tablet 1 tablet, By Mouth, Daily, # 90 tablet, 1 Refills, Maintenance, 04/25/23 9:46:00 PM EST, [facility] #[id number], 160, cm, 04/23/23 17:27:00 EST, Height, 104.5, kg, 04/23/23 17:27:00 EST, Dry Weight Start Date: 04/25/23 Status: Ordered Medication Dispense Status: Completed Quantity: 90.0 Unit: tablet Total Allowed Fills: 2 Fills Dispensed: 0 EpiPen 2-Taran 0.3 mg injectable kit = 0.3 mg, Intramuscular, Once, # 2 each, 0 Refills, Soft Stop, 06/05/23 8:59:00 AM EDT, [facility] #[id number], Partial fill upon patient request if the prescription is for a schedule II opioid drug., 165.5, cm, 06/05/23 8:30:00 EDT, Height, 104.5, kg, 04/23/23 17:27:00 EST, Dry Weight Start Date: 06/05/23 Status: Ordered Medication Dispense Status: Completed Quantity: 2.0 Unit: each Total Allowed Fills: 1 Fills Dispensed: 0 escitalopram 20 mg oral tablet 1 tablet, By Mouth, Daily, # 90 tablet, 3 Refills, Maintenance, 11/09/22 8:51:00 AM EDT, [facility] ([facility]), 216, cm, 06/21/22 7:55:00 EDT, Height Start Date: 11/09/22 Status: Ordered Medication Dispense Status: Completed Quantity: 90.0 Unit: tablet Total Allowed Fills: 1 Fills Dispensed: 0 gabapentin 300 mg oral capsule 300 mg, 1, capsule, By Mouth, 2 times a day, # 60 capsule, Refills 3, Tot. Refills 3, Maintenance, 03/04/23 7:12:00 PM EST, Route to Pharmacy Electronically, [facility] #[id number], Partial fill upon patient request if the prescription is for a schedule II opioid drug., 160, cm, 02/05/23 22:24:00 EST, Height Start Date: 03/04/23 Status: Ordered Medication Dispense Status: Completed Quantity: 60.0 Unit: capsule Total Allowed Fills: 4 Fills Dispensed: 0 LORazepam 0.5 mg oral tablet 1 tablet = 0.5 mg, By Mouth, 3 times a day, PRN for anxiety, # 56 tablet, 0 Refills, Maintenance, 06/03/22 12:49:00 PM EDT, Tablet, [facility] #[id number], Partial fill upon patient request if the prescription is for a schedule II opioid drug., 216, cm, 06/03/22 12:32:00 EDT, Height Start Date: 06/03/22 Stop Date: 07/01/22 Status: Ordered Medication Dispense Status: Completed Quantity: 56.0 Unit: tablet Total Allowed Fills: 1 Fills Dispensed: 0 methylphenidate 36 mg oral tablet, extended release 1 tablet = 36 mg, By Mouth, Daily in AM, # 30 tablet, 0 Refills, Maintenance, 02/19/23 11:55:00 AM EST, ER Tablet, [facility] #[id number], Partial fill upon patient request if the prescription is for a schedule II opioid drug., 160, cm, 02/05/23 22:24:00 EST, Height Start Date: 02/19/23 Status: Ordered Medication Dispense Status: Completed Quantity: 30.0 Unit: tablet Total Allowed Fills: 1 Fills Dispensed: 0 naproxen 500 mg oral tablet 1 tablet = 500 mg, By Mouth, 2 times a day, PRN for pain, # 20 tablet, 0 Refills, Maintenance, 06/15/21 2:52:00 PM EDT, Tablet, Partial fill upon patient request if the prescription is for a schedule II opioid drug. Start Date: 06/15/21 Status: Ordered Medication Dispense Status: Completed Quantity: 20.0 Unit: tablet Total Allowed Fills: 1 Fills Dispensed: 0 omeprazole 20 mg oral enteric coated capsule 1 capsule, By Mouth, Daily, # 90 capsule, 1 Refills, Maintenance, 05/26/23 5:38:00 PM EDT, [facility], 160, cm, 04/23/23 17:27:00 EST, Height, 104.5, kg, 04/23/23 17:27:00 EST, Dry Weight Start Date: 05/26/23 Status: Ordered Medication Dispense Status: Completed Quantity: 90.0 Unit: capsule Total Allowed Fills: 1 Fills Dispensed: 0 polyethylene glycol 3350 oral powder for reconstitution = 17 Gm, By Mouth, Daily, # 510 Gm, 3 Refills, Maintenance, 03/16/22 11:53:00 AM EST, [facility] #[id number], 30, MIX 17 GRAMS IN WATER AND TAKE BY MOUTH EVERY DAY, 216, cm, 11/30/21 9:40:00 EDT,Height Start Date: 03/16/22 Status: Ordered Medication Dispense Status: Completed Quantity: 510.0 Unit: g Total Allowed Fills: 1 Fills Dispensed: 0 rizatriptan 5 mg oral tablet See Instructions, PRN for migraine headache, 1 tablet By Mouth Once as needed for headache. May repeat dose once after 2 hours if headache continues or returns. Do not use more than 2 doses in 24 hours. Do not use more than 3 days per week, or more than 9 days per month., # 18 tablet, 2 Refills, Soft Stop, 01/29/23 2:25:00 PM EST, Tablet, [facility] #[id number], Partial fill upon patient request if the prescription is for a schedule II opioid drug., 216, cm, 06/21/22 7:55:00 EDT, Height Start Date: 01/29/23 Status: Ordered Medication Dispense Status: Completed Quantity: 18.0 Unit: tablet Total Allowed Fills: 3 Fills Dispensed: 0 Problem List Condition Confirmation Course Effective Dates Status H ealth Status Informant Food allergy Confirmed Active Anxiety Confirmed Active Cobalamin deficiency Confirmed 08/03/19 Active Depressive disorder Confirmed Active Eosinophilic esophagitis Confirmed Active Gastroesophageal reflux disease Confirmed 07/25/11 Active Hyperlipidemia Confirmed 06/21/11 Active Iron deficiency anemia Confirmed 08/03/19 Active Low back pain Confirmed Active Morbid obesity Confirmed Active Post-surgical malabsorption Confirmed 09/16/17 Active Severe obesity Confirmed Active Results Radiology Reports * Exam Date Time Procedure Performing Provider Status 01/21/25 10:18 AM MM Digital Mammo Screening Auth (Verified) Notes: (MM Digital Mammo Screening) Reason For Exam: SCREENING MAMMOGRAM RESULT: MM Digital Mammo Screening PROCEDURE: MM Digital Mammo Screening INDICATION: Screening for breast cancer. No known palpable abnormalities. COMPARISON: Comparison is made to prior relevant studies in PACS. TECHNIQUE: Full-field digital CC and MLO 3D tomosynthesis images of both breasts were acquired. Computer-aided detection (CAD) was utilized in the interpretation of this study. DENSITY: There are scattered areas of fibroglandular density. FINDINGS: No suspicious masses, suspicious microcalcifications, or areas of architectural distortion are seen in either breast to suggest malignancy. IMPRESSION: No mammographic evidence of malignancy. RECOMMENDATION: Annual mammographic screening. BI-RADS: 1 (Negative) Lay letter mailed to patient WSN: [id number] Ordering Physician: Suzanna Urbano Dictated By: Kylie Tellez MD Dictated Date/Time: 01/23/25 7:50 pm Reviewed By: Kylie Tellez MD Signed By: Kylie Tellez MD Signed Date/Time: 01/23/25 7:50 pm Transcribed By: [facility] Director Of Psychology Date/Time: 01/23/25 7:48 pm Birads: Social History Social History Type Response Sexual Sexually involved in last 6 months: Yes. Smoking Status Former smoker, quit more than 30 days ago; Type: Cigarettes; Tobacco use times per day: 0.25-0.5 pack/day; Started at age: 20; Stopped at age: 27; entered on: 11/26/21 Sex Sex Representation Female (finding) Patient Care team information Care Team Personnel Name: Estrella Villeda MD Position: Reference Physician Member Role: PCP Address: [address] [place] [address] Telecom: Care Team Related Persons Name: LISSETTE HAWKINS Name: BECKY HANLEY Insurance Providers Guarantor name: GAUDENCIO SHRUTHI Health Plan Information #: 1 Payer: [facility] POS Payer Identifier: TAMIKO Member Number: [id number] Group Number: [id number] Subscriber Identifier: [id number] Relationship to Subscriber: self Coverage Type: Commercial Managed Care - HMO Coverage Verification Date: NA Telecom: NA Address:
--- OUTSIDE RECORDS SUMMARY | 2025-01-31 07:50 | XMS_ITS | Clinical Summary ---
Author Organization [address] [place] [address] [place] [phone] Phone Care Team Providers Care Senior Net Developer Name Role Phone Suzanna Urbano Primary Care Provider [phone] Surgical History Surgery Date Site/Laterality Comments OTHER SURGICAL HISTORY PROCEDURE: CO ADENOIDECTOMY PRIMARY <AGE 14 OTHER SURGICAL HISTORY 08/17/2010 PROCEDURE: CO ESOPHAGOSCOPY FLEXIBLE REMOVAL FOREIGN BODY; COMMENT: Food; [facility] ESOPHAGOGASTRODUODENOSCOPY 11/13/10 PROCEDURE: CO ESOPHAGOGASTRODUODENOSCOPY TRANSORAL DIAGNOSTIC; COMMENT: normal TONSILLECTOMY PROCEDURE: HISTORICAL TONSILLECTOMY; COMMENT: 2010 OTHER SURGICAL HISTORY 03/07/2017 N/A PROCEDURE: CO RPR PARAESOPH HIATAL HERNIA W/THORCOM W/O MESH BARIATRIC SURGERY 03/07/2017 N/A PROCEDURE: CO LAPS GSTRC RSTRICTIV PX LONGITUDINAL GASTRECTOMY; COMMENT: laparoscopic sleeve of gastrectomy Medical History Medical History Date Comments Anxiety DX:Anxiety Depression DX:Depression Eosinophilic esophagitis DX:Eosi nophilic esophagitis Morbid obesity (CMS/HCC V24, CMS/HCC V28) DX:Morbid obesity ([facility]) Lumbago DX:Lumbago Bowel trouble DX:Bowel trouble [...] Years Used Date Smoking Tobacco: Former Cigarettes 0.2 Q uit: 02/25/2008 Smokeless Tobacco: Never Alcohol Use Standard Drinks/Week Comments Yes 0.8 (1 standard drink = 0.6 oz p ure alcohol) Comments Unknown Sex and Gender Information Value Date Recorded Sex Assigned at Not on file Legal Sex Female 9:37 AM EST Gender Identity Not on file Sexual Orientation Not on file Last Filed Vital Signs [...] 01/31/2022 2:45 PM EST Plan of Treatment Upcoming Encounters Date Type Department Care Team (Late st Contact Info) Description 02/10/2025 8:00 AM EST Consult Plastic & Reconstructive [facility] [place] [address] [place] [phone] Maryjo Ya PA [address] [place] [phone] Health Maintenance Due Date Last Done Comments Breast Cancer Screening 1982 Hepatitis B Vaccines (1 of 3 - 19+ 3-dose series) 2001 Cervical Cancer Screening: Pap Smear 09/29/2003 HPV Vaccines (1 - 3-dose SCDM series) 2009 Cholesterol Screening (Lipid Panel) 02/02/2022 HIV Screening 02/02/2022 Hepatitis C Screening 02/02/2022 Social Influencers of Health Screening 02/02/2022 Depression Screening 02/25/2024 COVID-19 Vaccine ( season) 2024 12/01/2020, 03/03/2020, 02/11/2020 Influenza Vaccine [...] on patient's age to complete this topic Insurance [facility] Care Teams Senior Net Developer Relationship Specialty Start Date End Date Suzanna Urbano PA [address] [place] [address] PCP - General Physician Assistant Professor Of Archaeology 12/22/24
--- OUTSIDE RECORDS SUMMARY | 2025-01-31 07:50 | XMS_ITS | Clinical Summary ---
Author Organization [facility] Prior to 07/24/[address] [place] [id number] Care Team Providers Care Project Planner Name Role Phone Estrella Villeda MD Primary Care Provider [phone] Allergies Active Allergy Reactions Criticality Noted Date [...] Rate - - Oxygen Saturation 98% 01/09/2022 2: 53 PM EST Inhaled Oxygen Concentration - - [...] age to complete this topic Care Teams Project Planner Relationship Specialty Start Date End Date Estrella Villeda MD PCP - General Internal Medicine 01/09/22
== END ==
LOC: HO.CARD 07:45
PROVIDERS: PCP Physician Assistant; Visit Provider Physician Assistant
DX: R00.2 Palpitations (principal); R42 Dizziness and giddiness
CPT/HCPCS: 93246

== ENCOUNTER → 2025-01-31 07:47 | Outpatient (BNV) | payer OTHER, SELFPAY | PROVIDERS: PCP Physician Assistant; Visit Provider Internal Medicine | DX: R00.2 Palpitations (principal) | CPT/HCPCS: 93248 ==